=== PATIENT | male | born 1985 | race Caucasian/White ===

== ENCOUNTER 2017-02-14 20:28 | Emergency (ER) | payer MEDICAID ==
[~2017-02-14] VITALS: Ht 188 cm; Wt 61.2 kg
[~2017-02-14 20:28] MED LIST: ACETAMINOPHEN-1 EAC1; ACETAMINOPHEN-1 EAC1 PO; ACYCLOVIR 400400 MG PO; BACTRIM DS TAB1 EACH PO; CARAFATE 11 GM/10 M1 PO; CIPRO500 MG PO; CONDYLOX3.5 GM TP; CORTISPORIN OIN15 GM TOP; DIABETA 5MG TABL5 MG PO; DIFLUCAN100 MG PO; DILAUDID 2 MG TA2 MG PO; DILAUDID 4 MG TA4 M1 PO; DILAUDID 4 MG TA4 MG PO; DOXYCYCLINE 10100 MG PO; FENTANYL 1100 MCG/HR; FENTANYL 1100 MCG/HR TOP; FENTANYL 1100 MCG/HR TRANSDERM; FENTANYL PA50 MCG/HR TRANSDERM; FENTANYL PATCH75 MCG TRANSDERM; GABAPENTIN 100100 MG PO; GLUCOPHAGE500 MG PO; GLUCOPHAGE850 MG PO; HUMALOG100 UNIT/2 SQ; HYDROCODON-ACE1 EAC7 PO; HYDROCODONE-APA1 TA1 PO; IBUPROFEN 600600 M1 PO; IBUPROFEN 800800 M1 PO; KEFLEX500 MG PO; LANTUS100 UNIT/M SUBQ; LEVEMIR; LEVEMIR SUBQ; LEVEMIR100 UNIT/1 SUBQ; METFORMIN HCL500 MG PO; MOBIC7.5 MG PO; MORPHINE SULFAT20 M1 PO; NAPROSYN500 MG; NAPROSYN500 MG PO; NEURONTIN 300300 M1 PO; NEURONTIN600 MG PO; NORCO 5-325 TA1 EACH PO; NORTRIPTYLINE H10 M1 PO; NORTRIPTYLINE H25 M3 PO; NORTRIPTYLINE H50 M3; NORTRIPTYLINE H50 M3 PO; NOVOLOG100 UNIT/1; NOVOLOG100 UNIT/1 SUBQ; NOVOLOG100 UNIT/M SUBQ; OTHER MISCELL; OXYCONTIN10 M1; OXYMORPHONE HCL5 MG; PANTOPRAZOLE SO40 M1 PO; PEPCID20 MG PO; PERCOCET 10-321 EACH PO; REMERON SOLTAB45 M1 PO; ROBAXIN 750 MG750 M1 PO; SEROQUEL 50 MG50 MG PO; SLEEPING PILL; TRAZODONE HCL100 MG PO; ULTRAM 50MG TAB50 MG PO; ZOFRAN ODT4 MG PO; [UNRECOGNIZED DRUG - REMARK]
[2017-02-14 20:32] VITALS: BP 145/98
[2017-02-14] MEDS ORDERED: LEVEMIR SUBQ (20:40)
[2017-02-14] MEDS ORDERED: PENICILLIN VK500 MG PO (20:52)
[2017-02-14] MEDS ORDERED: LEVEMIR FL100 UNIT/2 SUBQ (20:52)
[2017-02-14] MEDS ORDERED: NOVOLOG100 UNIT/M SUBQ (20:52)
== END 2017-02-14 20:55 | disposition home or self-care (01) ==
LOC: M.ERS 20:28
DX: K02.9 Dental caries, unspecified (principal); K08.89 Other specified disorders of teeth and supporting structures; F17.210 Nicotine dependence, cigarettes, uncomplicated; F41.9 Anxiety disorder, unspecified; F32.9 Major depressive disorder, single episode, unspecified; E10.9 Type 1 diabetes mellitus without complications; Z88.8 Allergy status to other drugs, medicaments and biological substances; Z91.030 Bee allergy status; Z79.4 Long term (current) use of insulin

== ENCOUNTER 2017-05-08 15:16 | Emergency (ER) | payer MEDICAID ==
[~2017-05-08] VITALS: Ht 188 cm; Wt 65.8 kg
[~2017-05-08 15:16] MED LIST changes: +LEVEMIR FL100 UNIT/2 SUBQ; +PENICILLIN VK500 MG PO
[2017-05-08 16:11] LABS: HEMATOCRIT 40.2 % (42.0-52.0); HEMOGLOBIN 13.3 gm/dL (14.0-18.0); MCH 30.8 pg (26.0-34.0); MCHC 33.2 g/dL (28.0-37.0); MCV 92.9 fL (80.0-100.0); MPV 7.3 fl. (7.2-11.1); NUCLEATED RBCS 0 /100WBC; PLATELET COUNT* 269 thou/uL (150-400); RBC 4.33 mil/uL (4.50-6.00); RDW-CV 14.2 % (10.5-14.5); WBC 15.6 thou/uL (4.0-11.0)
[2017-05-08 16:29] LABS: BE -5.7 mmol/L (-2 to +3); HCO3 17.3 mmol/L (22.0-26.0); PO2 78.1 mmHg (75.0-100.0)
[2017-05-08 16:32] LABS: ALBUMIN 2.4 g/dL (3.4-5.0); ALKALINE PHOSPHATASE 180 U/L (46-116); ANION GAP 17 mmol/L (7-16); BUN 14 mg/dL (7-18); CALCIUM 9.1 mg/dL (8.5-10.1); CHLORIDE 91 mmol/L (98-107); CO2 22 mmol/L (21-32); CREATININE 1.4 mg/dL (0.6-1.3); GLUCOSE 427 mg/dL (70-99); LIPASE 43 U/L (73-393); MAGNESIUM 1.7 mg/dL (1.8-2.4); NT-PRO BRAIN NAT PEPTIDE 89 pg/mL (<300); POTASSIUM 4.2 mmol/L (3.5-5.1); SGOT 103 U/L (15-37); SGPT 99 U/L (30-65); SODIUM 130 mmol/L (136-145); TOTAL BILIRUBIN 0.5 mg/dL (<0.1-1.0); TOTAL PROTEIN 6.8 g/dL (6.4-8.2); TROPONIN-I LEVEL <0.06 ng/mL (<0.06)
[2017-05-08 17:11] LABS: ABSOLUTE LYMPHOCYTES 1.7 thou/uL (0.8-5.3); ABSOLUTE MONOCYTES 0.6 thou/uL (0.0-1.2); ABSOLUTE NEUTROPHILS 13.3 thou/uL (1.6-8.1); PLATELET ESTIMATE ADEQUATE
[2017-05-08 17:12] LABS: POLYCHROMASIA Occasional
[2017-05-08 17:28] LABS: URINE BLOOD NEGATIVE (Negative); URINE CLARITY CLEAR; URINE COLOR YELLOW; URINE GLUCOSE-RANDOM 3+ (Negative); URINE KETONES NEGATIVE (Negative); URINE LEUKOCYTES-REFLEX NEGATIVE (Negative); URINE NITRITE-REFLEX NEGATIVE (Negative); URINE PROTEIN TRACE (Negative); URINE SPECIFIC GRAVITY 1.025 (1.005-1.030); URINE UROBILINOGEN 0.2 E.U./dl (0.2-1.0)
[2017-05-08 17:31] LABS: ICTOTEST (BILI CONFIRMATORY) Negative (Negative); URINE BILIRUBIN 1+ (Negative)
[2017-05-08 18:36] LABS: ANION GAP 9 mmol/L (7-16); BUN 12 mg/dL (7-18); CALCIUM 8.7 mg/dL (8.5-10.1); CHLORIDE 96 mmol/L (98-107); CO2 27 mmol/L (21-32); CREATININE 0.9 mg/dL (0.6-1.3); GLUCOSE 139 mg/dL (70-99); POTASSIUM 3.9 mmol/L (3.5-5.1); SODIUM 132 mmol/L (136-145)
[2017-05-08 18:42] LABS: BE 1.2 mmol/L (-2 to +3); HCO3 24.9 mmol/L (22.0-26.0); PCO2 36.7 mmHg (35.0-45.0); PO2 67.9 mmHg (75.0-100.0)
[2017-05-08 18:44] LABS: TROPONIN-I LEVEL <0.06 ng/mL (<0.06)
[2017-05-08] MEDS ORDERED: AUGMENTIN 875-1 EACH PO (18:51)
[2017-05-08 19:07] VITALS: BP 112/86
--- NOTE | 2017-05-09 14:46 | EKG ---
[place] [address] ELECTROCARDIOGRAM REPORT Name: RONAK JOE Room: [facility]#: [id number] Admission: 05/08/17 Attend Phys: Discharge: 05/08/17 Date of : [birth year] Report #: [id number] THIS REPORT FOR: //name// 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: : 1985 Requested By: Jones Urena Order Number: [id number] MD: Bryan Man Measurements Intervals [place] Rate: 113 P: 66 IL: 165 QRS: 83 QRSD: 87 T: 55 QT: 317 QTc: 435 Interpretive Statements Sinus tachycardia LAE, consider biatrial enlargement Borderline Q waves in inferior leads ST elev, probable normal early repol pattern Compared to ECG 11/20/2016 17:15:03 Ectopic atrial rhythm no longer present ST (T wave) deviation still present Electronically Signed On 05-09-2017 14:46:40 CDT by Bryan Man [email or web address] <ELECTRONICALLY SIGNED> By: Bryan Man MD, FAC 05/09/17 1446 1522 1522 Bryan Man MD, [facility] /EPI
== END 2017-05-08 19:08 | disposition home or self-care (01) ==
LOC: M.ERS 15:16
PROVIDERS: Emergency Medicine Emergency Medical Services
DX: H66.91 Otitis media, unspecified, right ear (principal); J32.1 Chronic frontal sinusitis; E10.9 Type 1 diabetes mellitus without complications; Z87.442 Personal history of urinary calculi; F32.9 Major depressive disorder, single episode, unspecified; F41.9 Anxiety disorder, unspecified; Z88.8 Allergy status to other drugs, medicaments and biological substances; F17.210 Nicotine dependence, cigarettes, uncomplicated

== ENCOUNTER 2017-07-16 16:30 | Emergency (ER) | payer MEDICAID ==
[~2017-07-16] VITALS: Ht 188 cm; Wt 68.0 kg
[~2017-07-16 16:30] MED LIST changes: +AUGMENTIN 875-1 EACH PO
[2017-07-16 16:53] VITALS: BP 128/86
[2017-07-16] MEDS ORDERED: FREESTYLE INSU1 EAC2 MISCELL (17:05)
[2017-07-16] MEDS ORDERED: BD ULTRA-FINE1 EAC4 MISCELL (17:05)
[2017-07-16] MEDS ORDERED: NOVOLOG100 UNIT/M SUBQ (17:05)
[2017-07-16] MEDS ORDERED: LEVEMIR FL100 UNIT/2 SUBQ (17:05)
== END 2017-07-16 17:18 | disposition home or self-care (01) ==
LOC: M.ERS 16:30
DX: E10.8 Type 1 diabetes mellitus with unspecified complications (principal); Z76.0 Encounter for issue of repeat prescription; F41.9 Anxiety disorder, unspecified; F32.9 Major depressive disorder, single episode, unspecified; F17.210 Nicotine dependence, cigarettes, uncomplicated; Z88.8 Allergy status to other drugs, medicaments and biological substances; Z87.442 Personal history of urinary calculi

== ENCOUNTER 2017-11-13 19:53 | Emergency (ER) | payer MEDICAID ==
[~2017-11-13] VITALS: Ht 188 cm; Wt 63.5 kg
[~2017-11-13 19:53] MED LIST changes: +BD ULTRA-FINE1 EAC4 MISCELL; +FREESTYLE INSU1 EAC2 MISCELL
[2017-11-13] MEDS ORDERED: NORCO 5-325 TA1 EACH PO (20:40)
[2017-11-13 20:57] VITALS: BP 120/72
== END 2017-11-13 20:58 | disposition home or self-care (01) ==
LOC: M.ERS 19:53
DX: M25.562 Pain in left knee (principal); F41.9 Anxiety disorder, unspecified; F32.9 Major depressive disorder, single episode, unspecified; E10.8 Type 1 diabetes mellitus with unspecified complications; F17.210 Nicotine dependence, cigarettes, uncomplicated; Z88.8 Allergy status to other drugs, medicaments and biological substances; Z87.442 Personal history of urinary calculi

== ENCOUNTER 2018-02-04 13:37 | Emergency (ER) | payer MEDICAID ==
[~2018-02-04] VITALS: Ht 188 cm; Wt 61.2 kg
[2018-02-04] MEDS ORDERED: LEVEMIR SUBQ (14:01)
[2018-02-04] MEDS ORDERED: NOVOLOG FL100 UNIT/M SUBQ (14:40)
[2018-02-04] MEDS ORDERED: NABUMETONE 750750 M1 PO (15:03)
[2018-02-04 15:27] VITALS: BP 135/96
== END 2018-02-04 15:28 | disposition home or self-care (01) ==
LOC: M.ERS 13:37
DX: S90.121A Contusion of right lesser toe(s) without damage to nail, initial encounter (principal); E10.9 Type 1 diabetes mellitus without complications; F32.9 Major depressive disorder, single episode, unspecified; F41.9 Anxiety disorder, unspecified; F17.210 Nicotine dependence, cigarettes, uncomplicated; Z87.442 Personal history of urinary calculi; Z86.14 Personal history of Methicillin resistant Staphylococcus aureus infection; Z88.8 Allergy status to other drugs, medicaments and biological substances; Z91.030 Bee allergy status; W22.8XXA Striking against or struck by other objects, initial encounter; Y93.89 Activity, other specified; Y92.89 Other specified places as the place of occurrence of the external cause; Y99.8 Other external cause status

== ENCOUNTER 2018-11-23 19:47 | Emergency (ER) | payer OTHER ==
[~2018-11-23] VITALS: Ht 188 cm; Wt 63.5 kg
[~2018-11-23 19:47] MED LIST changes: +MEDROLDOSEPACK PO; +NABUMETONE 750750 M1 PO; +NOVOLOG FL100 UNIT/M SUBQ; +TRAMADOL 50 MG50 MG PO
[2018-11-23] MEDS ORDERED: KEFLEX500 M1 PO (21:06)
[2018-11-23 21:33] VITALS: BP 124/85
== END 2018-11-23 21:35 | disposition home or self-care (01) ==
LOC: M.ERS 19:47
DX: S81.812A Laceration without foreign body, left lower leg, initial encounter (principal); E10.9 Type 1 diabetes mellitus without complications; F41.9 Anxiety disorder, unspecified; F32.9 Major depressive disorder, single episode, unspecified; F17.210 Nicotine dependence, cigarettes, uncomplicated; Z88.8 Allergy status to other drugs, medicaments and biological substances; Z86.14 Personal history of Methicillin resistant Staphylococcus aureus infection; Z87.442 Personal history of urinary calculi; W25.XXXA Contact with sharp glass, initial encounter; Y93.89 Activity, other specified; Y92.89 Other specified places as the place of occurrence of the external cause; Y99.8 Other external cause status

== ENCOUNTER 2019-08-05 20:25 | Inpatient (IN) | payer MEDICAID ==
[~2019-08-05] VITALS: Ht 188 cm; Wt 63.5 kg
[~2019-08-05 20:25] MED LIST changes: +KEFLEX500 M1 PO
[2019-08-05 21:49] LABS: ABSOLUTE BASOPHILS 0.1 thou/uL (0.0-0.2); ABSOLUTE LYMPHOCYTES 2.1 thou/uL (0.8-5.3); ABSOLUTE MONOCYTES 0.3 thou/uL (0.0-1.2); ABSOLUTE NEUTROPHILS 3.8 thou/uL (1.6-8.1); BASOPHILS 1.2 %; EOSINOPHILS 0.8 %; HEMATOCRIT 40.9 % (42.0-52.0); HEMOGLOBIN 14.4 gm/dL (14.0-18.0); LYMPHOCYTES 33.7 %; MCH 32.7 pg (26.0-34.0); MCHC 35.3 g/dL (28.0-37.0); MCV 92.7 fL (80.0-100.0); MONOCYTES 4.6 %; MPV 6.9 fl. (7.2-11.1); NUCLEATED RBCS 0 /100WBC; PLATELET COUNT* 336 thou/uL (150-400); POLYS 59.7 %; RBC 4.41 mil/uL (4.50-6.00); RDW-CV 13.8 % (10.5-14.5); WBC 6.3 thou/uL (4.0-11.0)
[2019-08-05 21:57] LABS: CALCIUM 8.8 mg/dL (8.5-10.1); CREATININE 1.5 mg/dL (0.6-1.3); POTASSIUM 3.8 mmol/L (3.5-5.1)
[2019-08-05 22:00] LABS: BE -3.4 mmol/L (-2 to +3); PCO2 34.3 mmHg (35.0-45.0); PO2 97.2 mmHg (75.0-100.0); pH 7.396 (7.340-7.450)
[2019-08-05 22:03] LABS: MAGNESIUM 1.8 mg/dL (1.8-2.4); TOTAL BILIRUBIN 0.3 mg/dL (<0.1-1.0); TOTAL PROTEIN 6.3 g/dL (6.4-8.2)
--- NOTE | 2019-08-05 23:00 | NUR ---
TURKEY SANDWICH/LEMON SODA GIVEN TO PATIENT
[2019-08-05 23:30] LABS: URINE BILIRUBIN NEGATIVE (Negative); URINE BLOOD NEGATIVE (Negative); URINE CLARITY CLEAR; URINE COLOR YELLOW; URINE GLUCOSE-RANDOM 3+ (Negative); URINE KETONES NEGATIVE (Negative); URINE LEUKOCYTES-REFLEX NEGATIVE (Negative); URINE NITRITE-REFLEX NEGATIVE (Negative); URINE PROTEIN NEGATIVE (Negative); URINE UROBILINOGEN 0.2 E.U./dl (0.2-1.0)
--- NOTE | 2019-08-05 23:59 | NUR ---
ALL BELONGINGS SENT WITH PARENTS
[2019-08-06 02:00] LABS: AMP/METHAMP Negative (Negative); BARBITURATES Negative (Negative); BENZODIAZEPINES Negative (Negative); COCAINE Negative (Negative); METHADONE Negative (Negative); OPIATES Negative (Negative); PCP Negative (Negative); THC POSITIVE (Negative)
[2019-08-06 04:30] VITALS: BP 98/66
[2019-08-06 08:38] VITALS: BP 101/61
[2019-08-06 08:43] LABS: CALCIUM 7.9 mg/dL (8.5-10.1); CREATININE 0.8 mg/dL (0.6-1.3); MAGNESIUM 1.8 mg/dL (1.8-2.4)
[2019-08-06 08:45] LABS: POTASSIUM 5.2 mmol/L (3.5-5.1)
--- NOTE | 2019-08-06 09:14 | NUR ---
NOTIFIED OF PT'S BLOOD SUGAR PER SLIDING SCALE INSTRUCTIONS
[2019-08-06 09:19] VITALS: BP 101/61
--- NOTE | 2019-08-06 12:08 | EKG ---
[place] [address] ELECTROCARDIOGRAM REPORT Name: RONAK JOE Room: [place] [address] DIS IN M.R.#: [id number] Admission: 08/06/19 Attend Phys: Yasmany vinson Sa Discharge: 08/06/19 Date of : 89 Date of Service: 08/05/192032 Report #: [id number] THIS REPORT FOR: //name// [facility] ED Test Date: 2019-08-05 Test Time: 20:33:52 Pat Name: RONAK JOE Department: Room: [place] [address] Gender: M Rn Icu: freddy : 1985 Requested By: Judie Mallory Order Number: [id number] MD: Bryan Man Measurements Intervals [place] Rate: 103 P: 75 VA: 183 QRS: 92 QRSD: 90 T: 65 QT: 339 QTc: 444 Interpretive Statements Sinus tachycardia Probable left atrial enlargement Borderline right axis deviation ST elevation suggests repolarization Baseline wander in lead(s) II,III,aVR,aVF Compared to ECG 08/08/2018 11:04:40 Myocardial infarct finding no longer present Electronically Signed On 08-06-2019 12:07:31 CDT by Bryan Man [email or web address] <ELECTRONICALLY SIGNED> By: Bryan Man MD, [facility] 08/06/19 1207 32 32 Bryan Man MD, [facility] /EPI
[2019-08-07 02:06] LABS: GLYCOHEMOGLOBIN (HGB A1C) 11.9 % (4.8-5.6)
== END 2019-08-06 09:21 | disposition left against medical advice (07) | DRG 922 ==
LOC: M.ERS 20:25 → M.TBA-ER 08-06 00:48
PROVIDERS: Internal Medicine; Personal Emergency Response Attendant; ADMIT Family Medicine; ATTEND Family Medicine
DX: T67.01XA Heatstroke and sunstroke, initial encounter (principal); N17.0 Acute kidney failure with tubular necrosis; E10.65 Type 1 diabetes mellitus with hyperglycemia; F32.9 Major depressive disorder, single episode, unspecified; F17.210 Nicotine dependence, cigarettes, uncomplicated; Y99.8 Other external cause status; Z53.29 Procedure and treatment not carried out because of patient's decision for other reasons; F41.1 Generalized anxiety disorder; Z20.828 Contact with and (suspected) exposure to other viral communicable diseases; X58.XXXA Exposure to other specified factors, initial encounter; Z87.442 Personal history of urinary calculi; Z87.81 Personal history of (healed) traumatic fracture; Z86.14 Personal history of Methicillin resistant Staphylococcus aureus infection; Z88.8 Allergy status to other drugs, medicaments and biological substances; Y93.89 Activity, other specified; Y92.89 Other specified places as the place of occurrence of the external cause

== ENCOUNTER 2019-09-13 02:58 | Inpatient (IN) | payer MEDICAID ==
[2019-09-13] VITALS (18 sets, daily range): BP systolic 117–144; BP diastolic 82–95
[~2019-09-13] VITALS: Ht 188 cm; Wt 61.7 kg
[2019-09-13 03:29] LABS: PCO2 31.4 mmHg (35.0-45.0); PO2 90.7 mmHg (75.0-100.0); pH 7.412 (7.340-7.450)
[2019-09-13 03:37] LABS: HEMATOCRIT 39.9 % (42.0-52.0); HEMOGLOBIN 13.4 gm/dL (14.0-18.0); MCH 33.1 pg (26.0-34.0); MCHC 33.5 g/dL (28.0-37.0); MCV 98.7 fL (80.0-100.0); MPV 6.9 fl. (7.2-11.1); NUCLEATED RBCS 0 /100WBC; PLATELET COUNT* 324 thou/uL (150-400); RBC 4.04 mil/uL (4.50-6.00); RDW-CV 13.4 % (10.5-14.5); WBC 8.7 thou/uL (4.0-11.0)
[2019-09-13 03:50] LABS: ANION GAP 14 mmol/L (7-16); BUN 18 mg/dL (7-18); CHLORIDE 83 mmol/L (98-107); CO2 24 mmol/L (21-32); CREATININE 1.5 mg/dL (0.6-1.3); POTASSIUM 4.1 mmol/L (3.5-5.1); SODIUM 121 mmol/L (136-145)
[2019-09-13 03:51] LABS: ALBUMIN 2.3 g/dL (3.4-5.0); ALKALINE PHOSPHATASE 221 U/L (46-116); LIPASE 57 U/L (73-393); MAGNESIUM 1.8 mg/dL (1.8-2.4); SGOT 322 U/L (15-37); SGPT 177 U/L (30-65); TOTAL BILIRUBIN 0.7 mg/dL (<0.1-1.0); TOTAL PROTEIN 7.6 g/dL (6.4-8.2)
[2019-09-13 03:52] LABS: GLUCOSE 729 mg/dL (70-99)
[2019-09-13 03:53] LABS: AMMONIA < 10 umol/L (11-32)
[2019-09-13 04:05] LABS: URINE BILIRUBIN NEGATIVE (Negative); URINE BLOOD NEGATIVE (Negative); URINE CLARITY CLEAR; URINE COLOR YELLOW; URINE GLUCOSE-RANDOM 3+ (Negative); URINE KETONES 1+ (Negative); URINE LEUKOCYTES-REFLEX NEGATIVE (Negative); URINE NITRITE-REFLEX NEGATIVE (Negative); URINE PROTEIN NEGATIVE (Negative); URINE SPECIFIC GRAVITY <= 1.005 (1.005-1.030); URINE UROBILINOGEN 0.2 E.U./dl (0.2-1.0)
[2019-09-13 04:11] LABS: ABSOLUTE LYMPHOCYTES 0.6 thou/uL (0.8-5.3); ABSOLUTE MONOCYTES 0.2 thou/uL (0.0-1.2); ABSOLUTE NEUTROPHILS 7.9 thou/uL (1.6-8.1); PLATELET ESTIMATE ADEQUATE
[2019-09-13 04:13] LABS: AMP/METHAMP Negative (Negative); BARBITURATES Negative (Negative); BENZODIAZEPINES Negative (Negative); COCAINE Negative (Negative); METHADONE Negative (Negative); OPIATES Negative (Negative); PCP Negative (Negative); THC Negative (Negative)
--- NOTE | 2019-09-13 07:37 | NUR ---
ASSUME CARE OF PT. REVIEWEDD MEDS AND INSULIN. PT STATES HE HAS NOT BEEN TAKING HIS INSULIN AT HOME "BECAUSE I DON'T FEEL GOOD".PT REPORTS HE DOES NOT HAVE A PCP. OFFERED NUMBERS FOR PCP IN THE AREA. DISCUSSED COMPLIANCE. WILL GIVE PT INFO. NSR ON MONITOR. PT REPORTS CHEST WALL PAIN. REQUESTING PAIN MEDS. OFFERED PT NICOTINE PATCH. PT REFUSES " I AM JUST GOING TO LEAVE WHEN I WAKE UP"
[2019-09-13] MEDS ORDERED: CEFDINIR300 MG PO (07:51)
[2019-09-13] MEDS ORDERED: AZITHROMYCIN500 MG PO (07:51)
[2019-09-13] MEDS ORDERED: NOVOLOG100 UNIT/M SUBQ (07:51)
--- NOTE | 2019-09-13 09:29 | EKG ---
[place] [address] ELECTROCARDIOGRAM REPORT Name: RONAK JOE Room: [address] ADM IN M.R.#: [id number] Admission: 09/13/19 Attend Phys: Roberto Meyers Discharge: Date of : 89 Date of Service: 09/13/19 0309 Report #: [id number] THIS REPORT FOR: //name// [facility] ED Test Date: 2019-09-13 Test Time: 03:09:10 Pat Name: RONAK JOE Department: Room: [facility] Gender: M [employer]: YARED : 1985 Requested By: Dalia Macdonald Order Number: [id number] MD: Bryan Man Measurements Intervals [place] Rate: 105 P: 53 ME: 169 QRS: 76 QRSD: 96 T: 51 QT: 313 QTc: 414 Interpretive Statements Sinus tachycardia ST elev, probable normal early repol pattern Baseline wander in lead(s) II,III,aVF Compared to ECG 08/05/2019 20:33:52 No significant changes Electronically Signed On 09-13-2019 9:29:07 CDT by Bryan Man [email or web address] <ELECTRONICALLY SIGNED> By: Bryan Man MD, FAC 09/13/19 0929 0309 0309 Bryan Man MD, FAC /EPI
[2019-09-13 10:09] LABS: CALCIUM 8.3 mg/dL (8.5-10.1); CREATININE 0.9 mg/dL (0.6-1.3); POTASSIUM 3.3 mmol/L (3.5-5.1)
[2019-09-13 10:12] LABS: ALBUMIN 1.9 g/dL (3.4-5.0); MAGNESIUM 1.6 mg/dL (1.8-2.4); PHOSPHORUS* 2.3 mg/dL (2.5-4.9)
--- NOTE | 2019-09-13 11:35 | NUR ---
RX CALLED IN TO [facility] FOR GLUCOMETER,STRIPS,LANCETS AND EMERGENCY GLUCAGON PER DR THIBODEAUX. REFERRAL SENT TO [facility] FOR APPT TO ESTABLISH CARE FOR DIABETES
--- NOTE | 2019-09-13 14:10 | NUR ---
ICU rounds: DKA, noncompliant type 1 diabetic. Nurse called scripts into Pt's pharmacy, Pt threatening to leave AMA. Pt resides at home with his GF. Independent. No DME. No hx of HH or SNF. No needs.
--- NOTE | 2019-09-13 15:30 | NUR ---
NUTRITION: CONSULTED BY NSG. PT DELCINED DIET EDUCATION STATING THAT HE WAS PLANNING ON GOING TO DIABETIC CLASSES AFTER DISCHARGE. ASKED PT AGAIN IF HE WOULD LIKE SOME INFORMATION TO GO OVER NOW AND TAKE HOME. PT DECLINED AGAIN STATING THE HE WANTS TIME TO "SIT DOWN AND STUDY IT, AND IF YOU GIVE IT TO ME HERE I WILL JUST THROW IT IN THE TRASH." PT IS UNDERWEIGHT PER BMI, WT IS CLOSE TO UBW RANGE 135-140 LB. ALBUMIN 2.3, CR 1.5, NA 121. BG IMPROVED, OFF DKA PROTOCOL. PT REPORTED HE WAS NOT TAKING INSULIN NUTRITIONIST. BG NOW IMPROVED, TAKEN OFF DKA PROTOCOL. PHYSICIAN NOTED MODERATE PCM, DEFER. ASSESS PT AT MILD NUTRITION RISK, DECLINED GLUCERNA SUPPLEMENTS.
[2019-09-13 16:29] LABS: CALCIUM 8.1 mg/dL (8.5-10.1); CREATININE 0.7 mg/dL (0.6-1.3)
[2019-09-13 16:30] LABS: POTASSIUM 5.1 mmol/L (3.5-5.1)
[2019-09-13 16:32] LABS: ALBUMIN 1.9 g/dL (3.4-5.0); MAGNESIUM 1.7 mg/dL (1.8-2.4); PHOSPHORUS* 2.2 mg/dL (2.5-4.9)
--- NOTE | 2019-09-13 16:55 | NUR ---
PT RESTING IN BED THROUGHOUT SHIFT.INSULIN GTT TURNED OFF THIS AFTERNOON. BG REMAIN IN 100S. IVF INFUSING. VOIDING PER URINAL. PT REPORTS RIGHT CHEST WALL AND RIB PAIN,CONTROLLED BY MEDS.TOLERATING PO WELL. DISCUSSED NONCOMPLIANCE AND EDUCATED PT ON DIABETES MANAGEMENT. DISCUSSED CARE PLAN WITH PT SIGNIFICANT OTHER. NSR. VSS.
[2019-09-14] VITALS (8 sets, daily range): BP systolic 118–138; BP diastolic 77–98
[2019-09-14 04:02] LABS: ALBUMIN 1.7 g/dL (3.4-5.0); CALCIUM 8.1 mg/dL (8.5-10.1); CREATININE 0.8 mg/dL (0.6-1.3); MAGNESIUM 1.9 mg/dL (1.8-2.4); PHOSPHORUS* 1.9 mg/dL (2.5-4.9); POTASSIUM 4.2 mmol/L (3.5-5.1); TOTAL BILIRUBIN 0.4 mg/dL (<0.1-1.0); TOTAL PROTEIN 6.2 g/dL (6.4-8.2)
--- NOTE | 2019-09-14 06:48 | NUR ---
VSS. IVF INFUSING ORDERED. HS BG 268, LANTUS AND SSI GIVEN ORDERED. REMAINS A/O X4, CALM AND COOPERATIVE THROUGHOUT THE NIGHT. RIGHT CHEST WALL/RIB FRACTURE PAIN TREATED WITH PRN FENTANYL WITH ADEQUATE RELIEF PER PT REPORT. TOLERATING PO DIET WITH NO C/O NAUSEA. PT STANDS TO VOID PER URINAL INDEPENDENTLY, STEADY GAIT. CALL LIGHT WITHIN REACH.
--- NOTE | 2019-09-14 18:44 | NUR ---
ASSESSMENT CHARTED. VSS THROUGHOUT SHIFT. PAIN IN RIGHT CHEST WHERE RIB FX ARE CONTROLLED WITH PRN PAIN MEDICATION. UP IN ROOM. LEFT HIP/KNEE IS SWOLLEN. FAMILY IS WONDERING IF THIS CAN BE ADDRESSED WHILE HE IS IN THE HOSPITAL. PATIENT REPORTS THAT THE SCAB ON HIS LEFT KNEE HAS BEEN THERE FOR SOME TIME NOW. NO OTHER COMPLAINTS DURING THIS SHIFT.
--- NOTE | 2019-09-14 19:20 | NUR ---
VSS. PT TRANSFERRED TO ROOM 109 VIA W/C, REPORT GIVEN TO GILBERTO RENO. ALL PERSONAL BELONGINGS SENT WITH PT.
--- NOTE | 2019-09-14 19:31 | NUR ---
PATIENT TO ROOM 109 VIA WHEELCHAIR AT 1920
--- NOTE | 2019-09-15 05:12 | NUR ---
PATIENT REPORTED PAIN 4/10 RECEIVED FENTANYL/CELEBREX. WAS ABLE TO SLEEP THROUGH THE NIGHT. HE DID NOT REPORT ANY NAUSEA. RECEIVED INSULIN, MEDS SCHEDULED. WILL CONTINUE TO MONITOR.
[2019-09-15 07:40] VITALS: BP 126/80
[2019-09-15 14:40] LABS: HEMATOCRIT 38.6 % (42.0-52.0); HEMOGLOBIN 13.2 gm/dL (14.0-18.0)
[2019-09-15 15:35] VITALS: BP 124/96
--- NOTE | 2019-09-15 16:28 | NUR ---
PATIENT NPO THIS AM FOR CT CHEST, DR. THIBODEAUX NOTIFIED THAT CT AND CXR RESULTED, NO NEW ORDERS RECEIVED. PATIENT C/O RIGHT SIDE RIB SWELLING, DR. THIBODEAUX NOTIFIED AND NO NEW ORDERS RECEIVED. SKIN CHECKED WITH HEATING PAD PLACEMENT. IV SL, PRN FENTANYL GIVEN X [address] SHIFT FOR PAIN. DR. THIBODEAUX NOTIFIED OF GLUCOSES THROUGH THE SHIFT, INSULIN GIVEN ORDERED. SCHED INSULIN WITH MEALS WAS DECREASED PER DR. THIBODEAUX. PATIENT UP AD JANIS.
[2019-09-15 21:20] VITALS: BP 136/82
[2019-09-16 04:05] LABS: HEMATOCRIT 35.5 % (42.0-52.0); HEMOGLOBIN 12.2 gm/dL (14.0-18.0); MCH 32.1 pg (26.0-34.0); MCHC 34.4 g/dL (28.0-37.0); MPV 6.7 fl. (7.2-11.1); RBC 3.8 mil/uL (4.50-6.00); WBC 11.9 thou/uL (4.0-11.0)
[2019-09-16 04:48] LABS: MCV 93.4 fL (80.0-100.0)
--- NOTE | 2019-09-16 05:09 | NUR ---
SOME SWELLING RIGHT SIDE OF TORSO. ENCOURAGED FREQUENT REPOSITIONING AND TO SIT IN THE RECLINER WHEN HE COULD. HE DID WELL WITH 50 MCG OF FENTANYL AND CELEBREX. PAIN IS NOW 4/10 THIS AM. HE IS ABLE TO AMBULATE TO RESTROOM. ON ROOM AIR. NO CRITICAL LABS THIS AM. LOW PLATELETS AT 474. USING KPAD FOR COMFORT. THERE IS SOME EDEMA ON LEFT KNEE AND LEFT ANKLE. HE SAID HE DID FALL WHEN HE WAS IN HIS HYPERGLYCEMIC EPISODE AT HOME BEFORE COMING TO ER. WILL CONTINUE TO FOLLOW PLAN OF CARE.
[2019-09-16] MEDS ORDERED: HYDROCODON-ACE1 EAC7 PO (07:50)
[2019-09-16 08:00] VITALS: BP 133/91
[2019-09-16 10:18] VITALS: BP 132/93
[2019-09-16 10:23] VITALS: BP 132/93
--- NOTE | 2019-09-16 11:08 | NUR ---
PT DISCHARGED TO HOME BY WHEELCHAIR WITH SO AND NURSING STAFF. IV OUT. PAIN CONTROLLED PRESCRIPTIONS EFAXED TO PHARMACY BY PERSONAL ITEMS SENT WITH PT.
== END 2019-09-16 11:10 | disposition home or self-care (01) | DRG 871 ==
LOC: M.ERS 02:58 → M.ICU 05:23 → M.TBA-ER 05:23 → M.ICU 05:40 → M.ORTHSURG 09-14 19:29
PROVIDERS: Emergency Medicine; Internal Medicine; ADMIT Internal Medicine; ATTEND Internal Medicine
DX: A41.9 Sepsis, unspecified organism (principal); E10.10 Type 1 diabetes mellitus with ketoacidosis without coma; J18.9 Pneumonia, unspecified organism; N17.0 Acute kidney failure with tubular necrosis; E87.1 Hypo-osmolality and hyponatremia; M84.48XA Pathological fracture, other site, initial encounter for fracture; S27.321A Contusion of lung, unilateral, initial encounter; E44.0 Moderate protein-calorie malnutrition; Z68.1 Body mass index [BMI] 19.9 or less, adult; F32.9 Major depressive disorder, single episode, unspecified; E10.65 Type 1 diabetes mellitus with hyperglycemia; Z20.828 Contact with and (suspected) exposure to other viral communicable diseases; F17.210 Nicotine dependence, cigarettes, uncomplicated; F41.1 Generalized anxiety disorder; Z87.81 Personal history of (healed) traumatic fracture; Z87.442 Personal history of urinary calculi; Z91.19 Patient's noncompliance with other medical treatment and regimen; Z86.14 Personal history of Methicillin resistant Staphylococcus aureus infection; Z88.8 Allergy status to other drugs, medicaments and biological substances; X58.XXXA Exposure to other specified factors, initial encounter; Y93.89 Activity, other specified; Y92.89 Other specified places as the place of occurrence of the external cause; Y99.8 Other external cause status

== ENCOUNTER 2020-05-14 16:24 | Inpatient (IN) | payer MEDICAID ==
[~2020-05-14] VITALS: Ht 172.7 cm; Wt 60.3 kg
[2020-05-14] VITALS (9 sets, daily range): BP systolic 106–138; BP diastolic 68–94
[~2020-05-14 16:24] MED LIST changes: +AZITHROMYCIN500 MG PO; +CEFDINIR300 MG PO
[2020-05-14] MEDS ORDERED: METFORMIN HCL500 M3 PO (16:31)
[2020-05-14 16:52] LABS: URINE BILIRUBIN NEGATIVE (Negative); URINE BLOOD 1+ (Negative); URINE CLARITY CLEAR; URINE COLOR YELLOW; URINE GLUCOSE-RANDOM 3+ (Negative); URINE LEUKOCYTES-REFLEX NEGATIVE (Negative); URINE NITRITE-REFLEX NEGATIVE (Negative); URINE PROTEIN NEGATIVE (Negative); URINE SPECIFIC GRAVITY 1.025 (1.005-1.030); URINE UROBILINOGEN 0.2 E.U./dl (0.2-1.0)
[2020-05-14 16:54] LABS: URINE KETONES 3+ (Negative)
[2020-05-14 17:02] LABS: AMP/METHAMP POSITIVE (Negative); BARBITURATES Negative (Negative); BENZODIAZEPINES POSITIVE (Negative); COCAINE Negative (Negative); METHADONE Negative (Negative); OPIATES POSITIVE (Negative); PCP Negative (Negative); THC Negative (Negative)
[2020-05-14 17:25] LABS: BACTERIA-REFLEX None Seen /HPF (None Seen); CRYSTALS None Seen /LPF (None Seen); HYALINE CASTS 0-3 Few /LPF (None Seen); SQUAMOUS 0-3 Few /LPF (0-3); URINE RBC 0-2 Rare /HPF (0-2); URINE WBC-REFLEX 0-5 Rare /HPF (0-5)
[2020-05-14 17:26] LABS: MUCUS None Seen strn/LPF (None Seen)
[2020-05-14 17:41] LABS: ABSOLUTE BASOPHILS 0.1 thou/uL (0.0-0.2); ABSOLUTE LYMPHOCYTES 1.9 thou/uL (0.8-5.3); ABSOLUTE MONOCYTES 0.3 thou/uL (0.0-1.2); ABSOLUTE NEUTROPHILS 7.7 thou/uL (1.6-8.1); BASOPHILS 0.7 %; BE -26.3 mmol/L (-2 to +3); EOSINOPHILS 0.2 %; HEMATOCRIT 49.1 % (42.0-52.0); HEMOGLOBIN 14.9 gm/dL (14.0-18.0); LYMPHOCYTES 19.4 %; MCH 31.5 pg (26.0-34.0); MCHC 30.4 g/dL (28.0-37.0); MCV 103.8 fL (80.0-100.0); MONOCYTES 2.6 %; MPV 7.1 fl. (7.2-11.1); NUCLEATED RBCS 0 /100WBC; PCO2 VENOUS 23.7 mmHg (41.0-51.0); PLATELET COUNT* 380 thou/uL (150-400); PO2 VENOUS 52.8 mmHg (35.0-45.0); POLYS 77.1 %; RBC 4.73 mil/uL (4.50-6.00); RDW-CV 15.7 % (10.5-14.5); WBC 9.9 thou/uL (4.0-11.0)
[2020-05-14 17:53] LABS: APTT 21.9 Seconds (25.0-31.3); INR 1.1; PROTIME 11.4 Seconds (9.20-11.50)
[2020-05-14 17:54] LABS: CALCIUM 9.1 mg/dL (8.5-10.1); CREATININE 1.3 mg/dL (0.6-1.3)
[2020-05-14 18:01] LABS: ALCOHOL < 10 mg/dL (<10); SALICYLATE 9.3 mg/dL (2.8-20.0)
[2020-05-14 18:04] LABS: ALBUMIN 4.2 g/dL (3.4-5.0); CK-MB MASS 6.8 ng/mL (<0.5-3.6); TOTAL BILIRUBIN 0.9 mg/dL (<0.1-1.0); TOTAL PROTEIN 8.7 g/dL (6.4-8.2)
[2020-05-14 18:05] LABS: ACETAMINOPHEN < 2 ug/mL (10-30)
[2020-05-14 21:43] LABS: ALBUMIN 1.9 g/dL (3.4-5.0); MAGNESIUM 1.4 mg/dL (1.8-2.4); PHOSPHORUS* 2.5 mg/dL (2.5-4.9)
[2020-05-14 21:45] LABS: CALCIUM 6.2 mg/dL (8.5-10.1); POTASSIUM 3.1 mmol/L (3.5-5.1)
[2020-05-14 22:38] LABS: BUN 25 mg/dL (7-18); CHLORIDE 112 mmol/L (98-107); CREATININE 1.2 mg/dL (0.6-1.3); GLUCOSE 383 mg/dL (70-99)
[2020-05-14 22:40] LABS: BE -21.8 mmol/L (-2 to +3)
[2020-05-14 22:40] LABS: ANION GAP 34 mmol/L (7-16); CALCIUM 9.2 mg/dL (8.5-10.1); POTASSIUM 4.6 mmol/L (3.5-5.1); SODIUM 152 mmol/L (136-145)
[2020-05-14 22:43] LABS: PCO2 19.3 mmHg (35.0-45.0); PO2 > 488.8 mmHg (75.0-100.0); pH 7.103 (7.340-7.450)
[2020-05-14 22:44] LABS: CO2 6 mmol/L (21-32)
[2020-05-15] VITALS (72 sets, daily range): BP systolic 81–127; BP diastolic 44–94
[2020-05-15 02:19] LABS: MAGNESIUM 2.5 mg/dL (1.8-2.4)
[2020-05-15 02:47] LABS: CALCIUM 8.1 mg/dL (8.5-10.1); CREATININE 1.3 mg/dL (0.6-1.3); POTASSIUM 3.9 mmol/L (3.5-5.1)
[2020-05-15 06:40] LABS: HEMATOCRIT 43.3 % (42.0-52.0); HEMOGLOBIN 13.9 gm/dL (14.0-18.0); MCH 30.7 pg (26.0-34.0); MCHC 32.1 g/dL (28.0-37.0); MPV 6.5 fl. (7.2-11.1); RBC 4.52 mil/uL (4.50-6.00); RDW-CV 14.3 % (10.5-14.5); WBC 16.1 thou/uL (4.0-11.0)
[2020-05-15 06:45] LABS: MCV 95.9 fL (80.0-100.0)
[2020-05-15 07:00] LABS: ALKALINE PHOSPHATASE 127 U/L (46-116); ANION GAP 21 mmol/L (7-16); BUN 25 mg/dL (7-18); CHLORIDE 119 mmol/L (98-107); CO2 14 mmol/L (21-32); CREATININE 1.7 mg/dL (0.6-1.3); GLUCOSE 169 mg/dL (70-99); MAGNESIUM 2.8 mg/dL (1.8-2.4); SGOT 60 U/L (15-37); SGPT 75 U/L (30-65); SODIUM 154 mmol/L (136-145); TOTAL BILIRUBIN 0.5 mg/dL (<0.1-1.0); TOTAL PROTEIN 6.5 g/dL (6.4-8.2)
[2020-05-15 08:30] LABS: BE -12.7 mmol/L (-2 to +3); PCO2 29.8 mmHg (35.0-45.0)
[2020-05-15 08:34] LABS: PO2 169.2 mmHg (75.0-100.0); pH 7.257 (7.340-7.450)
--- NOTE | 2020-05-15 09:51 | EKG ---
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 : 1985 Requested By: Jones Urena Order Number: [id number] MD: Bryan Man Measurements Intervals [place] Rate: 118 P: 78 MA: 162 QRS: 85 QRSD: 96 T: -57 QT: 342 QTc: 480 Interpretive Statements Sinus tachycardia Biatrial enlargement Abnormal T, consider ischemia, inferior leads Compared to ECG 09/13/2019 03:09:10 Atrial abnormality now present T-wave abnormality now present Electronically Signed On 05-15-2020 9:51:01 CDT by Bryan Man [email or web address] <ELECTRONICALLY SIGNED> By: Bryan Man MD, FAC 05/15/20 0951 1632 1632 Bryan Man MD, FAC /EPI
[2020-05-15 12:41] LABS: ANION GAP 15 mmol/L (7-16); BUN 26 mg/dL (7-18); CALCIUM 8.7 mg/dL (8.5-10.1); CHLORIDE 117 mmol/L (98-107); CO2 19 mmol/L (21-32); CREATININE 2.1 mg/dL (0.6-1.3); GLUCOSE 255 mg/dL (70-99); POTASSIUM 5.2 mmol/L (3.5-5.1); SODIUM 151 mmol/L (136-145)
[2020-05-15 14:56] LABS: ABSOLUTE MONOCYTES 0.6 thou/uL (0.0-1.2); ABSOLUTE NEUTROPHILS 8.4 thou/uL (1.6-8.1); BASOPHILS 0.3 %; EOSINOPHILS 0.2 %; HEMOGLOBIN 14.2 gm/dL (14.0-18.0); MCH 31.2 pg (26.0-34.0); MCHC 32.3 g/dL (28.0-37.0); MCV 96.8 fL (80.0-100.0); MONOCYTES 5.5 %; MPV 6.6 fl. (7.2-11.1); NUCLEATED RBCS 0 /100WBC; RBC 4.54 mil/uL (4.50-6.00); WBC 11.1 thou/uL (4.0-11.0)
[2020-05-15 15:00] LABS: CALCIUM 8.1 mg/dL (8.5-10.1); CREATININE 2.4 mg/dL (0.6-1.3)
[2020-05-15 15:03] LABS: PLATELET COUNT* 276 thou/uL (150-400)
[2020-05-15 15:04] LABS: ALBUMIN 2.7 g/dL (3.4-5.0); MAGNESIUM 2.3 mg/dL (1.8-2.4); PHOSPHORUS* 1.9 mg/dL (2.5-4.9); TOTAL BILIRUBIN 0.4 mg/dL (<0.1-1.0)
[2020-05-15 15:05] LABS: POTASSIUM 3.9 mmol/L (3.5-5.1)
[2020-05-15 16:37] LABS: INR 1.1; PROTIME 11.3 Seconds (9.20-11.50)
[2020-05-15 20:05] LABS: ALBUMIN 2.3 g/dL (3.4-5.0); CALCIUM 7.4 mg/dL (8.5-10.1); CREATININE 2.5 mg/dL (0.6-1.3); MAGNESIUM 2.3 mg/dL (1.8-2.4); POTASSIUM 4.4 mmol/L (3.5-5.1)
[2020-05-15 23:06] LABS: HBsAG-EMPLOYEE EXPOSURE Negative (Negative)
[2020-05-15 23:11] LABS: ALBUMIN 2.2 g/dL (3.4-5.0); CALCIUM 7.4 mg/dL (8.5-10.1); CREATININE 2.8 mg/dL (0.6-1.3); MAGNESIUM 2.2 mg/dL (1.8-2.4); POTASSIUM 4.1 mmol/L (3.5-5.1)
[2020-05-16] VITALS (53 sets, daily range): BP systolic 85–116; BP diastolic 44–81
[2020-05-16 03:15] LABS: ABSOLUTE BASOPHILS 0.1 thou/uL (0.0-0.2); ABSOLUTE EOSINOPHILS 0.1 thou/uL (0.0-0.7); ABSOLUTE LYMPHOCYTES 2.3 thou/uL (0.8-5.3); ABSOLUTE MONOCYTES 0.4 thou/uL (0.0-1.2); ABSOLUTE NEUTROPHILS 5.7 thou/uL (1.6-8.1); BASOPHILS 0.9 %; EOSINOPHILS 1.4 %; LYMPHOCYTES 26.9 %; MCH 32.2 pg (26.0-34.0); MCHC 33.1 g/dL (28.0-37.0); MCV 97.2 fL (80.0-100.0); MONOCYTES 4.8 %; MPV 6.4 fl. (7.2-11.1); NUCLEATED RBCS 0 /100WBC; WBC 8.6 thou/uL (4.0-11.0)
[2020-05-16 03:21] LABS: HEMOGLOBIN 10.9 gm/dL (14.0-18.0); PLATELET COUNT* 162 thou/uL (150-400)
[2020-05-16 03:38] LABS: ALBUMIN 2.1 g/dL (3.4-5.0); ALKALINE PHOSPHATASE 101 U/L (46-116); ANION GAP 15 mmol/L (7-16); BUN 28 mg/dL (7-18); CALCIUM 7.2 mg/dL (8.5-10.1); CHLORIDE 118 mmol/L (98-107); CO2 17 mmol/L (21-32); CREATININE 2.9 mg/dL (0.6-1.3); GLUCOSE 229 mg/dL (70-99); MAGNESIUM 2.2 mg/dL (1.8-2.4); PHOSPHORUS* 2.3 mg/dL (2.5-4.9); POTASSIUM 3.9 mmol/L (3.5-5.1); SGOT 55 U/L (15-37); SGPT 47 U/L (30-65); SODIUM 150 mmol/L (136-145); TOTAL BILIRUBIN 0.3 mg/dL (<0.1-1.0); TOTAL PROTEIN 5.1 g/dL (6.4-8.2)
[2020-05-16 04:01] LABS: LIPASE 5693 U/L (73-393)
[2020-05-16 04:49] LABS: TRIGLYCERIDE 320 mg/dL (<150)
[2020-05-16 08:03] LABS: CALCIUM 7.2 mg/dL (8.5-10.1); MAGNESIUM 2.2 mg/dL (1.8-2.4); PHOSPHORUS* 2.4 mg/dL (2.5-4.9); POTASSIUM 4.1 mmol/L (3.5-5.1)
[2020-05-16 09:09] LABS: BE -10.6 mmol/L (-2 to +3); PCO2 35.4 mmHg (35.0-45.0); PO2 107.3 mmHg (75.0-100.0)
[2020-05-16 11:58] LABS: ABSOLUTE BASOPHILS 0.1 thou/uL (0.0-0.2); ABSOLUTE EOSINOPHILS 0.1 thou/uL (0.0-0.7); ABSOLUTE LYMPHOCYTES 1.6 thou/uL (0.8-5.3); ABSOLUTE MONOCYTES 0.3 thou/uL (0.0-1.2); ABSOLUTE NEUTROPHILS 4.1 thou/uL (1.6-8.1); BASOPHILS 1.2 %; EOSINOPHILS 1.6 %; HEMATOCRIT 28.4 % (42.0-52.0); HEMOGLOBIN 9.4 gm/dL (14.0-18.0); LYMPHOCYTES 25.6 %; MCH 31.8 pg (26.0-34.0); MCV 96.4 fL (80.0-100.0); MONOCYTES 4.3 %; MPV 6.7 fl. (7.2-11.1); NUCLEATED RBCS 0 /100WBC; PLATELET COUNT* 131 thou/uL (150-400); POLYS 67.3 %; RBC 2.95 mil/uL (4.50-6.00); RDW-CV 14.2 % (10.5-14.5); WBC 6.1 thou/uL (4.0-11.0)
[2020-05-16 12:07] LABS: ALBUMIN 1.8 g/dL (3.4-5.0); PHOSPHORUS* 2.4 mg/dL (2.5-4.9); POTASSIUM 3.5 mmol/L (3.5-5.1)
[2020-05-17] VITALS (88 sets, daily range): BP systolic 86–137; BP diastolic 49–83
[2020-05-17 05:15] LABS: HEMOGLOBIN 8.8 gm/dL (14.0-18.0); MCH 32.3 pg (26.0-34.0); MCHC 33.8 g/dL (28.0-37.0); MCV 95.5 fL (80.0-100.0); MPV 6.8 fl. (7.2-11.1); RBC 2.72 mil/uL (4.50-6.00); RDW-CV 13.3 % (10.5-14.5); WBC 7.7 thou/uL (4.0-11.0)
[2020-05-17 05:31] LABS: ALBUMIN 1.8 g/dL (3.4-5.0); BUN 32 mg/dL (7-18); CALCIUM 7.4 mg/dL (8.5-10.1); CHLORIDE 111 mmol/L (98-107); CO2 19 mmol/L (21-32); CREATININE 3.3 mg/dL (0.6-1.3); GLUCOSE 277 mg/dL (70-99); MAGNESIUM 1.9 mg/dL (1.8-2.4); PHOSPHORUS* 3.4 mg/dL (2.5-4.9)
[2020-05-17 05:35] LABS: ANION GAP 12 mmol/L (7-16); POTASSIUM 4.8 mmol/L (3.5-5.1); SODIUM 142 mmol/L (136-145)
[2020-05-17 06:26] LABS: BE -10.7 mmol/L (-2 to +3); PCO2 33.3 mmHg (35.0-45.0); PO2 65.5 mmHg (75.0-100.0)
[2020-05-17 06:27] LABS: pH 7.274 (7.340-7.450)
[2020-05-17 10:22] LABS: BE -6.5 mmol/L (-2 to +3); PCO2 35.3 mmHg (35.0-45.0); PO2 68.9 mmHg (75.0-100.0)
[2020-05-17 16:44] LABS: BE -6.9 mmol/L (-2 to +3); PCO2 34.3 mmHg (35.0-45.0)
[2020-05-17 16:46] LABS: PO2 46.9 mmHg (75.0-100.0)
[2020-05-18] VITALS (69 sets, daily range): BP systolic 102–134; BP diastolic 67–90
[2020-05-18 05:13] LABS: ANION GAP 14 mmol/L (7-16); BUN 33 mg/dL (7-18); CALCIUM 8.1 mg/dL (8.5-10.1); CHLORIDE 108 mmol/L (98-107); CO2 19 mmol/L (21-32); GLUCOSE 384 mg/dL (70-99); POTASSIUM 4.6 mmol/L (3.5-5.1); SODIUM 141 mmol/L (136-145)
--- NOTE | 2020-05-18 09:57 | CON ---
[address] [address] CONSULTATION Name: RONAK JOE Room: [address] IN M.R.#: [id number] Admission: 05/14/20 Attend Phys: Darleen Gil MD Discharge: Date of : 89 Report #: [id number] THIS REPORT FOR: cc: RICARDO - No family physician/PCP RICARDO - No family physician/PCP Ethan Freeman MD ~ DATE OF SERVICE: 05/15/2020 INDICATION FOR CONSULTATION: Ventilator management. HISTORY OF PRESENT ILLNESS: A 34-year-old gentleman with past medical history as mentioned below. This does include a history of polysubstance abuse. The patient previously had a prolonged stay in this hospital on the ventilator in 2015 and in fact at that time had a PEG and a trach. He is an active smoker. The patient at this time is now admitted again with DKA. He also had altered mental status on initial presentation and needed to be endotracheally intubated for airway protection. The patient currently is on the ventilator. He is currently oxygenating and ventilating adequately. Initially, he was on Versed and propofol infusions overnight. I tapered off the Versed, which was just discontinued this morning and we started fentanyl, currently he is on 50 of propofol and also 50 of fentanyl. Earlier, we had tried decreasing his propofol; however, the patient became significantly tachycardic and heart rate was sustained for a long period of time in the mid 130s. The patient was administered low pressure at that time. The patient subsequently had been re-sedated and this time appears to be calm. Heart rate is around 100. He is also hemodynamically stable. The patient is reported to have been on top of hitting his head before he was admitted. He is not known to have any respiratory complaints prior to admission. He as above is unable to provide a further history or review of systems. PAST MEDICAL HISTORY: Polysubstance abuse, type 1 diabetes, prolonged stay on the ventilator in this hospital in 2015. The patient at that time had a PEG as well as trach. These were subsequently reversed anxiety, depression. The patient's chest x-ray shows considerable hyperinflation and is consistent with COPD, although I do not see the diagnosis on his records. He has had a suicidal attempt in the past. Various orthopedic surgeries, spine fracture at the level of T4 and L5. He is noted to be MRSA positive previously in 2007, esophageal Candidiasis, hepatitis C, chronic back pain, orbital fracture. SOCIAL HISTORY: There is an extensive history of smoking, also methamphetamine use, marijuana use, benzodiazepine use, and opiate use. It is not known to me as to whether the patient uses significant amounts of alcohol as well or not. The patient's last available echocardiogram is from 2015[place] [address] CONSULTATION Name: HEATHRONAK DAVE SHANA Room: [address] IN ..#: [id number] Admission: 05/14/20 Attend Phys: Darleen Gil MD Discharge: Date of : 89 Report #: [id number] ventricular ejection fraction of 70% without elevation in right heart pressures. ALLERGIES: WASPS, STINGS AND NICKEL. CUR[facility] MEDICATIONS: [facility]. HOME MEDICATIONS: The list in [facility] also reviewed. However, this may not represent his fullness. The patient is unable to provide further information. FAMILY HISTORY: No pertinent family history known at this time. PHYSICAL EXAMINATION: GENERAL: He is sedated with propofol as well as fentanyl as above. He had only recently discontinued his Versed. VITAL SIGNS: Has a pulse of 106 and a blood pressure of 107/75. He is saturating 98%. He is on 30% FiO2 with a tidal volume of 500 and his AC rate is set at 14. He is breathing at 16. He is afebrile with a temperature of 37.0 this morning. HEENT: Head is normocephalic and atraumatic. Endotracheal tube is in good position, slightly high in the trachea. NECK: Does not show raised JVP, asymmetry, mass or lymph nodes. He does have a central line in place. CHEST: Symmetrical expansion on inspection and palpation. On auscultation, chest is clear. HEART: Regular. There is no murmur. ABDOMEN: Soft and nontender. EXTREMITIES: Lower extremities show no edema, no calf tenderness. SKIN: Dry and intact. NEUROLOGICAL: Moves all extremities bilaterally equally and spontaneously with no focal deficit identified. LABORATORY DATA: The patient's lab work is in [facility] and this is reviewed. A rise in creatinine this morning is noted. The patient's chest x-ray shows considerable hyperinflation as above. IMAGING STUDY: The patient had a CT head as well as C-spine, both the reports are in [facility] and are reviewed and do not show regular abnormalities. ASSESSMENT AND PLAN: 1. Acute respiratory failure secondary to altered mental status and diabetic ketoacidosis. Note that the patient also does have a history of polysubstance abuse. At this time, I would continue fentanyl. If needed, we will increase fentanyl up to a 100. I would like to try to taper off his propofol and start Precedex instead. I have changed his Versed to p.r.n. We will see how he [place] [address] [address] CONSULTATION Name: RONAK JOE Room: [address] ADM IN M.R.#: [id number] Admission: 05/14/20 Attend Phys: Darleen Gil MD Discharge: Date of : 89 Report #: [id number] responds to switching propofol over to Precedex if he does well. Potentially a trial of weaning trial could be done later this afternoon. Otherwise, we will plan to attempt to try to extubate him tomorrow morning. 2. Chronic obstructive pulmonary disease. The patient's chest x-ray is consistent with significant hyperinflation. I suspect that he has significant COPD at this young age of only 34. Objectively, we have an alpha-1 antitrypsin level; otherwise, I will go ahead and obtain one. He was significantly tachycardic. Therefore, I have only ordered low dose Xopenex for now. We will increase dose if he is able to tolerate. Note that he does have a history of smoking. 3. Diabetic ketoacidosis. I would defer management to the primary service as well as a Nephrology. 4. Altered mental status/possibility of aspiration. I do not see any obvious infiltrates on the patient's chest x-ray, regardless, I will go ahead and obtain a sputum, if there is a sputum available, we will repeat a nasal swab for methicillin-resistant Staphylococcus aureus and note that he has been MRSA positive in the past. 5. Acute renal insufficiency/severe hypernatremia. I would defer management of IV fluids to Dr. Maguire. From a pulmonary point of view, the patient should be able to tolerate more IV fluids. 6. Polysubstance abuse. The patient is an active smoker and is noted to also be positive for benzodiazepines, opiates as well as amphetamines and there is a reported previous use of marijuana as well as alcohol as well. 7. Past prolonged stable on ventilator with a trach and PEG. Interestingly, after a drug overdose, primarily amphetamine, which is unusual as amphetamine is a stimulant. 8. Deep venous thrombosis prophylaxis, Lovenox. 9. Gastrointestinal prophylaxis, Protonix. 10. The patient is critically ill at this time. Total time spent providing critical care to this patient today is around 45 minutes. <ELECTRONICALLY SIGNED> By: Ethan Freeman MD 05/18/20 0957 1136 1214Aalison Freeman MD /nt
[2020-05-19 00:45] VITALS: BP 114/83
[2020-05-19 04:39] VITALS: BP 117/83
[2020-05-19 06:23] LABS: ANION GAP 11 mmol/L (7-16); BUN 37 mg/dL (7-18); CALCIUM 8.2 mg/dL (8.5-10.1); CHLORIDE 106 mmol/L (98-107); CO2 21 mmol/L (21-32); CREATININE 2.5 mg/dL (0.6-1.3); GLUCOSE 341 mg/dL (70-99); POTASSIUM 4.1 mmol/L (3.5-5.1); SODIUM 138 mmol/L (136-145)
[2020-05-19 06:45] LABS: ABSOLUTE EOSINOPHILS 0.1 thou/uL (0.0-0.7); ABSOLUTE MONOCYTES 0.2 thou/uL (0.0-1.2); BASOPHILS 0.3 %; EOSINOPHILS 2.1 %; HEMATOCRIT 28.4 % (42.0-52.0); HEMOGLOBIN 9.6 gm/dL (14.0-18.0); LYMPHOCYTES 18.4 %; MCH 31.7 pg (26.0-34.0); MCHC 33.8 g/dL (28.0-37.0); MCV 93.7 fL (80.0-100.0); MONOCYTES 4.4 %; MPV 6.5 fl. (7.2-11.1); NUCLEATED RBCS 0 /100WBC; POLYS 74.8 %; RBC 3.03 mil/uL (4.50-6.00); WBC 5.4 thou/uL (4.0-11.0)
[2020-05-19 06:46] LABS: PLATELET COUNT* 203 thou/uL (150-400)
[2020-05-19 07:55] VITALS: BP 120/83
[2020-05-19 12:00] VITALS: BP 132/95
[2020-05-19 16:00] VITALS: BP 133/96
[2020-05-20 00:31] VITALS: BP 127/92
[2020-05-20 04:43] VITALS: BP 133/92
[2020-05-20 04:56] LABS: HEMATOCRIT 28.4 % (42.0-52.0); HEMOGLOBIN 9.6 gm/dL (14.0-18.0); MCH 31.3 pg (26.0-34.0); MCHC 33.7 g/dL (28.0-37.0); MCV 92.7 fL (80.0-100.0); MPV 6.7 fl. (7.2-11.1); RBC 3.07 mil/uL (4.50-6.00); RDW-CV 12.7 % (10.5-14.5); WBC 5.4 thou/uL (4.0-11.0)
[2020-05-20 05:01] LABS: CALCIUM 8.6 mg/dL (8.5-10.1); CREATININE 1.9 mg/dL (0.6-1.3); POTASSIUM 3.9 mmol/L (3.5-5.1)
[2020-05-20 07:40] VITALS: BP 142/102
[2020-05-20 16:04] VITALS: BP 135/100
[2020-05-20 21:00] VITALS: BP 142/100
[2020-05-21 05:04] LABS: ABSOLUTE BASOPHILS 0.1 thou/uL (0.0-0.2); ABSOLUTE EOSINOPHILS 0.2 thou/uL (0.0-0.7); ABSOLUTE LYMPHOCYTES 1.8 thou/uL (0.8-5.3); ABSOLUTE MONOCYTES 0.3 thou/uL (0.0-1.2); ABSOLUTE NEUTROPHILS 3.4 thou/uL (1.6-8.1); BASOPHILS 1.1 %; EOSINOPHILS 2.7 %; HEMATOCRIT 30.1 % (42.0-52.0); HEMOGLOBIN 10.1 gm/dL (14.0-18.0); LYMPHOCYTES 30.5 %; MCH 31.4 pg (26.0-34.0); MCHC 33.4 g/dL (28.0-37.0); NUCLEATED RBCS 0 /100WBC; PLATELET COUNT* 264 thou/uL (150-400); POLYS 59.7 %; RBC 3.21 mil/uL (4.50-6.00); RDW-CV 13.1 % (10.5-14.5); WBC 5.8 thou/uL (4.0-11.0)
[2020-05-21 05:15] LABS: CALCIUM 8.9 mg/dL (8.5-10.1); CREATININE 1.9 mg/dL (0.6-1.3); MAGNESIUM 1.6 mg/dL (1.8-2.4); POTASSIUM 4.7 mmol/L (3.5-5.1)
[2020-05-21 08:00] VITALS: BP 130/95
[2020-05-21 15:24] VITALS: BP 123/90
[2020-05-21 20:00] VITALS: BP 124/90
[2020-05-22 00:05] VITALS: BP 112/77
[2020-05-22 03:56] VITALS: BP 105/69
[2020-05-22 07:45] VITALS: BP 130/91
[2020-05-22 14:05] LABS: ALBUMIN 2.1 g/dL (3.4-5.0); CALCIUM 8.8 mg/dL (8.5-10.1); CREATININE 1.3 mg/dL (0.6-1.3); POTASSIUM 4.5 mmol/L (3.5-5.1); TOTAL BILIRUBIN 0.2 mg/dL (<0.1-1.0)
[2020-05-22 16:00] VITALS: BP 114/76
[2020-05-22 23:02] VITALS: BP 120/76
[2020-05-23 08:00] VITALS: BP 148/85
[2020-05-23 16:35] VITALS: BP 136/100
[2020-05-23 20:30] VITALS: BP 127/91
[2020-05-24 01:30] VITALS: BP 129/91
[2020-05-24 04:44] VITALS: BP 146/99
[2020-05-24 08:00] VITALS: BP 147/99
[2020-05-24 15:27] VITALS: BP 135/88
[2020-05-25] MEDS ORDERED: BUSPIRONE HCL5 MG PO (08:49)
[2020-05-25] MEDS ORDERED: HUMALOG100 UNIT/1 SUBQ ×2 (08:49)
[2020-05-25] MEDS ORDERED: NEURONTIN600 MG PO (08:49)
[2020-05-25] MEDS ORDERED: SEROQUEL 50 MG50 MG PO (08:49)
[2020-05-25] MEDS ORDERED: VOLTAREN GEL 1100 G1 TOP (08:49)
[2020-05-25] MEDS ORDERED: MELATONIN3 MG PO (08:49)
[2020-05-25] MEDS ORDERED: ACETAMINOPHEN325 M1 PO (08:49)
[2020-05-25] MEDS ORDERED: LIDOPATCH1 EACH TOP (08:49)
[2020-05-25] MEDS ORDERED: BROVANA15 MCG/2 M INH (08:49)
[2020-05-25] MEDS ORDERED: LORAZEPAM 0.50.5 MG PO ×2 (08:49→10:13)
[2020-05-25] MEDS ORDERED: TRAMADOL 50 MG50 MG PO ×2 (08:49→10:13)
[2020-05-25] MEDS ORDERED: LANTUS SUBQ (08:49)
[2020-05-25] MEDS ORDERED: LEVALBUTER1.25 MG/0. INH (08:49)
[2020-05-25 08:57] LABS: ABSOLUTE BASOPHILS 0.1 thou/uL (0.0-0.2); ABSOLUTE EOSINOPHILS 0.3 thou/uL (0.0-0.7); ABSOLUTE LYMPHOCYTES 2.7 thou/uL (0.8-5.3); ABSOLUTE MONOCYTES 0.4 thou/uL (0.0-1.2); BASOPHILS 1.9 %; EOSINOPHILS 3.4 %; HEMATOCRIT 27.7 % (42.0-52.0); HEMOGLOBIN 9.4 gm/dL (14.0-18.0); LYMPHOCYTES 35.4 %; MCH 31.8 pg (26.0-34.0); MCHC 34.2 g/dL (28.0-37.0); MONOCYTES 5.7 %; MPV 5.9 fl. (7.2-11.1); NUCLEATED RBCS 0 /100WBC; PLATELET COUNT* 544 thou/uL (150-400); POLYS 53.6 %; RBC 2.97 mil/uL (4.50-6.00); WBC 7.6 thou/uL (4.0-11.0)
[2020-05-25 09:13] LABS: CALCIUM 9.2 mg/dL (8.5-10.1); CREATININE 1.2 mg/dL (0.6-1.3); POTASSIUM 4.8 mmol/L (3.5-5.1)
[2020-05-25 09:14] LABS: ALBUMIN 2.3 g/dL (3.4-5.0); TOTAL BILIRUBIN 0.2 mg/dL (<0.1-1.0); TOTAL PROTEIN 6.6 g/dL (6.4-8.2)
[2020-05-25 16:05] VITALS: BP 125/88
[2020-05-25 20:00] VITALS: BP 133/93
--- NOTE | 2020-05-26 18:58 | EKG ---
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 : 1985 Requested By: Darleen Gil Order Number: [id number] Reading MD: Eran Ferrer Measurements Intervals [place] Rate: 125 P: 64 MD: 162 QRS: 52 QRSD: 85 T: 32 QT: 323 QTc: 466 Interpretive Statements Sinus tachycardia Probable left atrial enlargement Possible anteroseptal infarct, old Compared to ECG 05/14/2020 16:32:13 Myocardial infarct finding now present T-wave abnormality no longer present Possible ischemia no longer present Electronically Signed On 05-26-2020 18:58:16 CDT by Eran Ferrer [email or web address] <ELECTRONICALLY SIGNED> By: Eran Ferrer MD, FACC 05/26/20 1858 1441 1441 Eran Ferrer MD, FACC /EPI
[2020-05-26 20:31] VITALS: BP 137/93
[2020-05-27 08:00] VITALS: BP 139/75
[2020-05-27 11:01] VITALS: BP 139/75
== END 2020-05-27 12:48 | disposition home or self-care (01) | DRG 871 ==
LOC: M.ERS 16:24 → M.TBA-ER 18:30 → M.ICU 22:28 → M.2W 05-18 19:28 → M.ORTHSURG 05-20 16:52
PROVIDERS: Emergency Medicine Emergency Medical Services; Internal Medicine; Internal Medicine Critical Care Medicine; Internal Medicine Nephrology; Nurse Practitioner Family; Pediatrics; Personal Emergency Response Attendant; ADMIT Internal Medicine; ATTEND Internal Medicine
DX: A41.9 Sepsis, unspecified organism (principal); E10.10 Type 1 diabetes mellitus with ketoacidosis without coma; J96.01 Acute respiratory failure with hypoxia; N17.0 Acute kidney failure with tubular necrosis; J15.6 Pneumonia due to other Gram-negative bacteria; J69.0 Pneumonitis due to inhalation of food and vomit; E87.0 Hyperosmolality and hypernatremia; G93.40 Encephalopathy, unspecified; J44.0 Chronic obstructive pulmonary disease with (acute) lower respiratory infection; F32.9 Major depressive disorder, single episode, unspecified; F41.9 Anxiety disorder, unspecified; F19.10 Other psychoactive substance abuse, uncomplicated; F17.210 Nicotine dependence, cigarettes, uncomplicated; I95.9 Hypotension, unspecified; E86.1 Hypovolemia; E86.9 Volume depletion, unspecified; D64.9 Anemia, unspecified; D69.6 Thrombocytopenia, unspecified; T14.91XA Suicide attempt, initial encounter; Z20.822 Contact with and (suspected) exposure to COVID-19; Z87.442 Personal history of urinary calculi; Z86.14 Personal history of Methicillin resistant Staphylococcus aureus infection; Z87.81 Personal history of (healed) traumatic fracture; Z88.8 Allergy status to other drugs, medicaments and biological substances; X83.8XXA Intentional self-harm by other specified means, initial encounter; Y93.89 Activity, other specified; Y92.89 Other specified places as the place of occurrence of the external cause; Y99.8 Other external cause status

== ENCOUNTER 2020-07-01 22:25 | Inpatient (IN) | payer MEDICAID ==
[~2020-07-01] VITALS: Ht 182.9 cm; Wt 61.7 kg
--- NOTE | ~2020-07-01 | CON ---
[address] [address] CONSULTATION Name: RONAK JOE Room: [address] IN M.R.#: [id number] Admission: 07/02/20 Attend Phys: Darleen Gil MD Discharge: Date of : [birth year] Report #: [id number] THIS REPORT FOR: cc: FAM - No family physician/PCP FAM - No family physician/PCP Chandler Sandy MD ~ DOC #: [id number] Chandler Sandy MD DATE OF CONSULTATION: 07/02/2020 HISTORY OF PRESENT ILLNESS: This is a 34-year-old male patient who was seen by me for alteration in mental status. He also is pretty dysarthric. Records were reviewed and I talked to the patient. As records indicate and my interview with the patient indicate, he is a very poor historian. He is also somewhat evasive historian when the talk about any drug abuse. He is a diabetic and looks like he is a noncompliant diabetic, and his blood sugar was pretty high. His lactic acid was high, but it is coming down. It looks like he has a UTI. REVIEW OF SYSTEMS: Positive for a spine injury and a left foot drop. He has also ankle injury, facial injury. He says he still has metals in the face, but hardware from the back was removed. He has a history of polysubstance abuse, a suicidal attempt, kidney stones, also has a history of anxiety and tracheostomy, genital warts as per records. A 14-point review of system was otherwise noncontributory. PAST MEDICAL HISTORY: Positive for psychiatric problem. FAMILY HISTORY: Negative for early age stroke. SOCIAL HISTORY: He says he does not drink alcohol, but he smokes. PHYSICAL EXAMINATION: Difficult because his speech is pretty slurred, but he is still able to talk. I think he tells me it is May, but he is so difficult to understand. Cranial nerve examination is difficult because of sleepiness, but he was attempting. Extraocular movements looks intact. He moves all 4 extremities. He has a preexisting deficit in the left lower extremity. He did not cooperate with cerebellar or sensory examination. There is no meningeal sign. There is no carotid bruit and this patient does not have much edema. Cardiac examination is unremarkable. No respiratory difficulty was noticed. Blood pressure is 103/71, temperature is 97.2. He did have a CT, which was unremarkable. IMPRESSION: The patient's symptoms are most likely [place] [address] CONSULTATION Name: RONAK JOE Room: [address] IN ..#: [id number] Admission: 07/02/20 Attend Phys: Darleen iGl MD Discharge: Date of : 89 Report #: [id number] caused by high blood sugar, urinary tract infection and his drug abuse. I cannot exclude the possibility of stroke, which can occur with such uncontrolled diabetes and multiple other vascular risk factor. If MRI can be done, then we will do an MRI of the brain to exclude some pathology. I will get an EEG done. Main thing he needs is supportive care and adjustment is medication. I discussed all of it with the patient. The patient says no. There is no contraindication for MRI. We will check our MRI department before doing that. Thank you very much for this referral. MD CORRIE Leavitt/LENIN By: 1218 1934Ptabby Sandy MD /nt
--- NOTE | ~2020-07-01 | EEG ---
[address] [address] EEG STUDY REPORT Name: RONAK JOE Room: [address] IN M.R.#: [id number] Admission: 07/02/20 Attend Phys: Darleen Gil MD Discharge: Date of : 89 Report #: [id number] THIS REPORT FOR: cc: FAM - No family physician/PCP FAM - No family physician/PCP Chandler Sandy MD ~ DOC #: [id number] Chandler Sandy MD DATE OF SERVICE: 07/02/2020 This patient is being evaluated for altered mental status. EEG was done by placing the electrode by standard 10-20 system of electrode placement. Both referential and sequential montages were used for recording. Background activity in this patient's EEG is about 8 Hz and 30 microvolt. Photic stimulation is unremarkable. The patient became drowsy and that is associated with bilateral slowing and vertex sharp waves. IMPRESSION: This patient's EEG is intermixed with theta range slowing on both sides. There is a nonspecific abnormality, which can occur with encephalopathy, effect of psychotropic medication, dementia, etc. Clinical correlation is recommended. Chandler Sandy MD PK/ANI By: 1725 1735Chandler Sandy MD /catarino
[~2020-07-01 22:25] MED LIST changes: +ACETAMINOPHEN325 M1 PO; +BROVANA15 MCG/2 M INH; +BUSPIRONE HCL5 MG PO; +HUMALOG100 UNIT/1 SUBQ; +LANTUS SUBQ; +LEVALBUTER1.25 MG/0. INH; +LIDOPATCH1 EACH TOP; +LORAZEPAM 0.50.5 MG PO; +MELATONIN3 MG PO; +METFORMIN HCL500 M3 PO; +VOLTAREN GEL 1100 G1 TOP
[2020-07-01 22:32] VITALS: BP 110/79
[2020-07-01 22:52] LABS: BE -7.5 mmol/L (-2 to +3); PCO2 36.3 mmHg (35.0-45.0); PO2 94.6 mmHg (75.0-100.0); pH 7.312 (7.340-7.450)
[2020-07-01 22:59] LABS: ABSOLUTE BASOPHILS 0.1 thou/uL (0.0-0.2); ABSOLUTE EOSINOPHILS 0.1 thou/uL (0.0-0.7); ABSOLUTE LYMPHOCYTES 2.8 thou/uL (0.8-5.3); ABSOLUTE MONOCYTES 0.3 thou/uL (0.0-1.2); ABSOLUTE NEUTROPHILS 2.6 thou/uL (1.6-8.1); BASOPHILS 0.9 %; EOSINOPHILS 1.8 %; LYMPHOCYTES 47.4 %; MCH 31.5 pg (26.0-34.0); MCHC 34.2 g/dL (28.0-37.0); MONOCYTES 5.5 %; MPV 6.7 fl. (7.2-11.1); NUCLEATED RBCS 0 /100WBC; PLATELET COUNT* 264 thou/uL (150-400); POLYS 44.4 %; RDW-CV 13.7 % (10.5-14.5); WBC 5.9 thou/uL (4.0-11.0)
[2020-07-01 23:05] LABS: CALCIUM 9.7 mg/dL (8.5-10.1); CREATININE 1.4 mg/dL (0.6-1.3); POTASSIUM 3.5 mmol/L (3.5-5.1)
[2020-07-01 23:10] LABS: ALBUMIN 3.1 g/dL (3.4-5.0); MAGNESIUM 1.9 mg/dL (1.8-2.4); TOTAL BILIRUBIN 0.2 mg/dL (<0.1-1.0); TOTAL PROTEIN 6.8 g/dL (6.4-8.2)
[2020-07-01] MEDS ORDERED: SEROQUEL 100 M100 MG PO (23:22)
[2020-07-01] MEDS ORDERED: SUBOXONE 8 MG-1 EAC3 PO (23:23)
[2020-07-01] MEDS ORDERED: CELEXA 20 MG TA20 MG PO (23:24)
[2020-07-02] VITALS (21 sets, daily range): BP systolic 91–125; BP diastolic 55–89
[2020-07-02 00:57] LABS: URINE BILIRUBIN NEGATIVE (Negative); URINE BLOOD 1+ (Negative); URINE COLOR YELLOW; URINE GLUCOSE-RANDOM 3+ (Negative); URINE KETONES TRACE (Negative); URINE LEUKOCYTES-REFLEX 1+ (Negative); URINE NITRITE-REFLEX NEGATIVE (Negative); URINE PROTEIN NEGATIVE (Negative); URINE UROBILINOGEN 0.2 E.U./dl (0.2-1.0)
[2020-07-02 01:00] LABS: URINE CLARITY SL CLOUDY
[2020-07-02 01:05] LABS: AMP/METHAMP Negative (Negative); BACTERIA-REFLEX >30 Many /HPF (None Seen); BARBITURATES Negative (Negative); BENZODIAZEPINES POSITIVE (Negative); CASTS None Seen /LPF (None Seen); COCAINE Negative (Negative); METHADONE Negative (Negative); MUCUS 4-6 Moderate strn/LPF (None Seen); OPIATES Negative (Negative); PCP Negative (Negative); SQUAMOUS 0-3 Few /LPF (0-3); THC POSITIVE (Negative); URINE WBC-REFLEX >25 Many /HPF (0-5); WBC CLUMPS Many (None Seen)
[2020-07-02 01:06] LABS: CRYSTALS None Seen /LPF (None Seen)
--- NOTE | 2020-07-02 12:20 | EKG ---
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: MARIA ESTHER : 1985 Requested By: Judie Mallory Order Number: [id number] MD: Saqib Hurtado Measurements Intervals [employer] Rate: 131 P: 48 MA: 146 QRS: 75 QRSD: 89 T: 13 QT: 303 QTc: 448 Interpretive Statements Sinus tachycardia Left atrial enlargement Possible anteroseptal infarct, old Compared to ECG 05/26/2020 14:41:23 No significant changes Electronically Signed On 07-02-2020 12:20:41 CDT by Saqib Hurtado [email or web address] <ELECTRONICALLY SIGNED> By: Saqib Hurtado MD, [facility] 07/02/20 122 29 29 Saqib Hurtado MD, [facility] /EPI
[2020-07-03 04:00] VITALS: BP 116/93
[2020-07-03 04:56] LABS: ABSOLUTE BASOPHILS 0.1 thou/uL (0.0-0.2); ABSOLUTE EOSINOPHILS 0.2 thou/uL (0.0-0.7); ABSOLUTE LYMPHOCYTES 1.8 thou/uL (0.8-5.3); ABSOLUTE MONOCYTES 0.2 thou/uL (0.0-1.2); ABSOLUTE NEUTROPHILS 1.8 thou/uL (1.6-8.1); BASOPHILS 1.3 %; EOSINOPHILS 4.5 %; HEMATOCRIT 32.2 % (42.0-52.0); LYMPHOCYTES 45.6 %; MCH 31.5 pg (26.0-34.0); MCV 92.5 fL (80.0-100.0); MONOCYTES 4.4 %; MPV 6.8 fl. (7.2-11.1); NUCLEATED RBCS 0 /100WBC; PLATELET COUNT* 202 thou/uL (150-400); POLYS 44.2 %; RBC 3.48 mil/uL (4.50-6.00); RDW-CV 13.5 % (10.5-14.5)
[2020-07-03 04:59] LABS: CALCIUM 8.4 mg/dL (8.5-10.1); CREATININE 0.8 mg/dL (0.6-1.3); POTASSIUM 4.3 mmol/L (3.5-5.1)
[2020-07-03 08:00] VITALS: BP 142/111
[2020-07-03 11:25] VITALS: BP 155/107
[2020-07-03 13:21] VITALS: BP 155/107
[2020-07-03 13:22] VITALS: BP 155/107
[2020-07-03 14:11] VITALS: BP 155/107
== END 2020-07-03 13:30 | disposition home or self-care (01) | DRG 871 ==
LOC: M.ERS 22:25 → M.TBA-ER 07-02 01:15 → M.ICU 07-02 02:29 → M.2W 07-02 19:00
PROVIDERS: Internal Medicine; Personal Emergency Response Attendant; ADMIT Internal Medicine; ATTEND Internal Medicine
DX: A41.9 Sepsis, unspecified organism (principal); G93.41 Metabolic encephalopathy; N39.0 Urinary tract infection, site not specified; F32.9 Major depressive disorder, single episode, unspecified; F41.9 Anxiety disorder, unspecified; E10.69 Type 1 diabetes mellitus with other specified complication; Z20.822 Contact with and (suspected) exposure to COVID-19; F17.210 Nicotine dependence, cigarettes, uncomplicated; F19.10 Other psychoactive substance abuse, uncomplicated; R16.0 Hepatomegaly, not elsewhere classified; E10.65 Type 1 diabetes mellitus with hyperglycemia; Z87.81 Personal history of (healed) traumatic fracture; Z93.0 Tracheostomy status; Z86.14 Personal history of Methicillin resistant Staphylococcus aureus infection; Z87.442 Personal history of urinary calculi; Z88.8 Allergy status to other drugs, medicaments and biological substances

== ENCOUNTER 2020-08-15 20:09 | Emergency (ER) | payer MEDICAID ==
[~2020-08-15] VITALS: Ht 188 cm; Wt 52.6 kg
[~2020-08-15 20:09] MED LIST changes: +CELEXA 20 MG TA20 MG PO; +SEROQUEL 100 M100 MG PO; +SUBOXONE 8 MG-1 EAC3 PO
[2020-08-15 20:57] LABS: HEMOGLOBIN 15.6 gm/dL (14.0-18.0); MCH 30.2 pg (26.0-34.0); MCHC 33.9 g/dL (28.0-37.0); MPV 6.4 fl. (7.2-11.1); NUCLEATED RBCS 0 /100WBC; PLATELET COUNT* 663 thou/uL (150-400); RBC 5.17 mil/uL (4.50-6.00); RDW-CV 14.4 % (10.5-14.5); WBC 14.8 thou/uL (4.0-11.0)
[2020-08-15 21:05] LABS: BE -14.5 mmol/L (-2 to +3); PO2 97.3 mmHg (75.0-100.0); pH 7.335 (7.340-7.450)
[2020-08-15 21:12] LABS: ALBUMIN 4.2 g/dL (3.4-5.0); CALCIUM 9.9 mg/dL (8.5-10.1); CREATININE 1.6 mg/dL (0.6-1.3); POTASSIUM 3.9 mmol/L (3.5-5.1); TOTAL BILIRUBIN 0.6 mg/dL (<0.1-1.0); TOTAL PROTEIN 10.2 g/dL (6.4-8.2)
[2020-08-15 21:18] LABS: PCO2 < 17.0 mmHg (35.0-45.0)
[2020-08-15 21:30] LABS: ABSOLUTE MONOCYTES 0.6 thou/uL (0.0-1.2); ABSOLUTE NEUTROPHILS 13.2 thou/uL (1.6-8.1); PLATELET ESTIMATE INCREASED
[2020-08-15 23:00] LABS: URINE BLOOD NEGATIVE (Negative); URINE CLARITY CLEAR; URINE COLOR YELLOW; URINE GLUCOSE-RANDOM 2+ (Negative); URINE LEUKOCYTES-REFLEX NEGATIVE (Negative); URINE NITRITE-REFLEX NEGATIVE (Negative); URINE PROTEIN NEGATIVE (Negative); URINE SPECIFIC GRAVITY 1.025 (1.005-1.030); URINE UROBILINOGEN 0.2 E.U./dl (0.2-1.0)
[2020-08-15 23:00] LABS: PHOSPHORUS* 3.5 mg/dL (2.5-4.9)
[2020-08-15 23:01] LABS: URINE BILIRUBIN 1+ (Negative); URINE KETONES 3+ (Negative)
[2020-08-15 23:05] LABS: ICTOTEST (BILI CONFIRMATORY) Negative (Negative)
[2020-08-15 23:16] LABS: AMP/METHAMP Negative (Negative); BARBITURATES Negative (Negative); BENZODIAZEPINES Negative (Negative); COCAINE Negative (Negative); METHADONE Negative (Negative); OPIATES Negative (Negative); PCP Negative (Negative); THC Negative (Negative)
[2020-08-16 04:05] VITALS: BP 124/78
--- NOTE | 2020-08-16 12:49 | EKG ---
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: : 1985 Requested By: Judie Mallory Order Number: [id number] MD: Eran Ferrer Measurements Intervals [place] Rate: 136 P: 78 MA: 123 QRS: 92 QRSD: 95 T: 74 QT: 388 QTc: 584 Interpretive Statements Sinus tachycardia Borderline right axis deviation Prolonged QT interval Compared to ECG 07/01/2020 22:30:47 Prolonged QT interval now present Atrial abnormality no longer present Myocardial infarct finding no longer present Electronically Signed On 08-16-2020 12:49:49 CDT by Eran Ferrer [email or web address] <ELECTRONICALLY SIGNED> By: Eran Ferrer MD, FACC 08/16/20 1249 01 01 Eran Ferrer MD, FAC /EPI
== END 2020-08-16 04:05 | disposition short-term general hospital (02) ==
LOC: M.ERS 20:09
PROVIDERS: Personal Emergency Response Attendant
DX: E10.10 Type 1 diabetes mellitus with ketoacidosis without coma (principal); Z20.822 Contact with and (suspected) exposure to COVID-19; Z91.14 Patient's other noncompliance with medication regimen; F17.210 Nicotine dependence, cigarettes, uncomplicated; Z88.8 Allergy status to other drugs, medicaments and biological substances; Z87.442 Personal history of urinary calculi; Z86.14 Personal history of Methicillin resistant Staphylococcus aureus infection

== ENCOUNTER 2020-12-01 16:39 | Emergency (ER) | payer MEDICAID ==
[~2020-12-01] VITALS: Ht 188 cm; Wt 60.8 kg
[2020-12-01 18:29] LABS: ABSOLUTE BASOPHILS 0.1 thou/uL (0.0-0.2); ABSOLUTE EOSINOPHILS 0.5 thou/uL (0.0-0.7); ABSOLUTE LYMPHOCYTES 2.7 thou/uL (0.8-5.3); ABSOLUTE MONOCYTES 0.2 thou/uL (0.0-1.2); ABSOLUTE NEUTROPHILS 2.9 thou/uL (1.6-8.1); BASOPHILS 1.2 %; EOSINOPHILS 8.5 %; HEMATOCRIT 35.7 % (42.0-52.0); HEMOGLOBIN 11.4 gm/dL (14.0-18.0); LYMPHOCYTES 42.4 %; MCH 21.9 pg (26.0-34.0); MCV 68.3 fL (80.0-100.0); MONOCYTES 3.3 %; MPV 6.7 fl. (7.2-11.1); NUCLEATED RBCS 0 /100WBC; PLATELET COUNT* 340 thou/uL (150-400); POLYS 44.6 %; RBC 5.23 mil/uL (4.50-6.00); RDW-CV 19.7 % (10.5-14.5); WBC 6.4 thou/uL (4.0-11.0)
[2020-12-01 18:38] LABS: CALCIUM 9.1 mg/dL (8.5-10.1); POTASSIUM 4.4 mmol/L (3.5-5.1)
[2020-12-01 18:43] LABS: ALBUMIN 3.4 g/dL (3.4-5.0); TOTAL BILIRUBIN 0.2 mg/dL (<0.1-1.0); TOTAL PROTEIN 7.4 g/dL (6.4-8.2)
[2020-12-01 18:52] VITALS: BP 127/89
[2020-12-01 21:32] LABS: ANISOCYTOSIS 1+; MICROCYTES 2+; PLATELET ESTIMATE ADEQUATE
== END 2020-12-01 18:53 | disposition home or self-care (01) ==
LOC: M.ERS 16:39
PROVIDERS: Physician Assistant
DX: H81.10 Benign paroxysmal vertigo, unspecified ear (principal); G89.29 Other chronic pain; M54.50 Low back pain, unspecified; E10.9 Type 1 diabetes mellitus without complications; F32.9 Major depressive disorder, single episode, unspecified; F41.9 Anxiety disorder, unspecified; F17.210 Nicotine dependence, cigarettes, uncomplicated; Z79.899 Other long term (current) drug therapy; Z91.048 Other nonmedicinal substance allergy status; W01.0XXA Fall on same level from slipping, tripping and stumbling without subsequent striking against object, initial encounter; Y93.89 Activity, other specified; Y92.89 Other specified places as the place of occurrence of the external cause; Y99.8 Other external cause status

== ENCOUNTER 2021-02-19 16:46 | Inpatient (IN) | payer MEDICAID ==
[~2021-02-19] VITALS: Ht 188 cm; Wt 45.4 kg
--- NOTE | ~2021-02-19 | PROC ---
[address] [address] PROCEDURE REPORT Name: HEATHRONAKSIMON SALDANA Room: [address] IN M.R.#: [id number] Admission: 02/19/21 Attend Phys: Janis Cartagena Discharge: 02/24/21 Date of : 89 Report #: [id number] THIS REPORT FOR: cc: Angelica Looney MD, Elizabeth S. MD [facility],Medical Records Staff ~ For GI report, please see the Provation report in Perceptive 7 content. By: 0656Medical Records Staff [facility] /CYRUS
--- NOTE | ~2021-02-19 | PROC ---
[address] [address] PROCEDURE REPORT Name: MIREYA JOESIMON SALDANA Room: [address] IN M.R.#: [id number] Admission: 02/19/21 Attend Phys: Janis Cartagena Discharge: Date of : 89 Report #: [id number] THIS REPORT FOR: cc: Angelica Looney MD, Elizabeth S. MD [facility],Medical Records Staff ~ For GI report, please see the Provation report in Perceptive 7 content. By: 1036Medical Records Staff [facility] /CYRUS
[2021-02-19 16:54] VITALS: BP 143/100
[2021-02-19 17:28] LABS: HEMATOCRIT 44.7 % (42.0-52.0); HEMOGLOBIN 14.4 gm/dL (14.0-18.0); MCH 24.6 pg (26.0-34.0); MCHC 32.2 g/dL (28.0-37.0); MCV 76.2 fL (80.0-100.0); MPV 6.6 fl. (7.2-11.1); NUCLEATED RBCS 0 /100WBC; PLATELET COUNT* 455 thou/uL (150-400); RBC 5.87 mil/uL (4.50-6.00); RDW-CV 20.5 % (10.5-14.5); WBC 9.1 thou/uL (4.0-11.0)
[2021-02-19 17:35] LABS: CALCIUM 9.9 mg/dL (8.5-10.1); CREATININE 1.8 mg/dL (0.6-1.3); POTASSIUM 4.9 mmol/L (3.5-5.1)
[2021-02-19 17:39] LABS: TOTAL BILIRUBIN 0.6 mg/dL (<0.1-1.0); TOTAL PROTEIN 8.4 g/dL (6.4-8.2)
[2021-02-19 17:49] LABS: ABSOLUTE LYMPHOCYTES 0.6 thou/uL (0.8-5.3); ABSOLUTE MONOCYTES 0.4 thou/uL (0.0-1.2); ABSOLUTE NEUTROPHILS 8.1 thou/uL (1.6-8.1); ANISOCYTOSIS 1+; PLATELET ESTIMATE ADEQUATE
--- NOTE | 2021-02-19 19:09 | NUR ---
SPOKE TO GI, HE WILL PLACE ORDERS. ANABEL
[2021-02-19] MEDS ORDERED: PROTONIX40 M2 PO (20:01)
[2021-02-19 20:33] LABS: BE -15.1 mmol/L (-2 to +3); PCO2 VENOUS 27.7 mmHg (41.0-51.0); PO2 VENOUS 58.5 mmHg (35.0-45.0)
[2021-02-19 22:30] VITALS: BP 123/87
[2021-02-20 00:05] LABS: CALCIUM 8.6 mg/dL (8.5-10.1); CREATININE 1.5 mg/dL (0.6-1.3)
[2021-02-20 00:06] LABS: POTASSIUM 3.7 mmol/L (3.5-5.1)
[2021-02-20 03:32] VITALS: BP 146/95
[2021-02-20 04:08] LABS: ABSOLUTE MONOCYTES 0.4 thou/uL (0.0-1.2); ABSOLUTE NEUTROPHILS 4.4 thou/uL (1.6-8.1); BASOPHILS 0.6 %; EOSINOPHILS 0.2 %; HEMATOCRIT 36.2 % (42.0-52.0); LYMPHOCYTES 16.8 %; MCH 24.4 pg (26.0-34.0); MCHC 32.4 g/dL (28.0-37.0); MCV 75.3 fL (80.0-100.0); MONOCYTES 6.6 %; MPV 6.2 fl. (7.2-11.1); NUCLEATED RBCS 0 /100WBC; POLYS 75.8 %; RBC 4.81 mil/uL (4.50-6.00); RDW-CV 21.4 % (10.5-14.5); WBC 5.8 thou/uL (4.0-11.0)
[2021-02-20 04:10] LABS: HEMOGLOBIN 11.7 gm/dL (14.0-18.0); PLATELET COUNT* 353 thou/uL (150-400)
[2021-02-20 04:27] LABS: ALBUMIN 3.5 g/dL (3.4-5.0); CALCIUM 9.3 mg/dL (8.5-10.1); CREATININE 1.6 mg/dL (0.6-1.3); POTASSIUM 4.1 mmol/L (3.5-5.1); TOTAL BILIRUBIN 0.6 mg/dL (<0.1-1.0); TOTAL PROTEIN 7.2 g/dL (6.4-8.2)
[2021-02-20 05:00] LABS: URINE BLOOD 2+ (Negative); URINE CLARITY CLEAR; URINE COLOR YELLOW; URINE GLUCOSE-RANDOM 2+ (Negative); URINE LEUKOCYTES-REFLEX NEGATIVE (Negative); URINE NITRITE-REFLEX NEGATIVE (Negative); URINE PROTEIN TRACE (Negative); URINE SPECIFIC GRAVITY 1.015 (1.005-1.030); URINE UROBILINOGEN 0.2 E.U./dl (0.2-1.0)
[2021-02-20 05:01] LABS: URINE BILIRUBIN 2+ (Negative); URINE KETONES 3+ (Negative)
[2021-02-20 05:05] LABS: ACETEST (KETONE CONFIRMATORY) Moderate (Negative)
[2021-02-20 05:06] LABS: ICTOTEST (BILI CONFIRMATORY) Negative (Negative)
[2021-02-20 05:08] LABS: AMP/METHAMP Negative (Negative); BARBITURATES Negative (Negative); BENZODIAZEPINES Negative (Negative); COCAINE Negative (Negative); METHADONE Negative (Negative); OPIATES Negative (Negative); PCP Negative (Negative); THC Negative (Negative)
[2021-02-20 05:24] LABS: % SATURATION 28 % (20-39); IRON 119 ug/dL (50-175)
[2021-02-20 05:58] LABS: ESR (SEDRATE) 9 mm/hr (0-15)
[2021-02-20 06:13] VITALS: BP 125/90
[2021-02-20 06:29] LABS: MUCUS 0-3 Light strn/LPF (None Seen); SQUAMOUS 0-3 Few /LPF (0-3)
[2021-02-20 06:33] LABS: BACTERIA-REFLEX None Seen /HPF (None Seen); COARSE GRANULAR CASTS 0-3 Few /LPF (None Seen); CRYSTALS None Seen /LPF (None Seen); URINE WBC-REFLEX None Seen /HPF (0-5)
[2021-02-20 10:05] VITALS: BP 125/89
[2021-02-20 10:09] LABS: CALCIUM 9.2 mg/dL (8.5-10.1); CREATININE 1.6 mg/dL (0.6-1.3); POTASSIUM 3.9 mmol/L (3.5-5.1)
[2021-02-20 10:13] LABS: ALBUMIN 3.2 g/dL (3.4-5.0); MAGNESIUM 1.7 mg/dL (1.8-2.4); TOTAL BILIRUBIN 0.4 mg/dL (<0.1-1.0); TOTAL PROTEIN 6.6 g/dL (6.4-8.2)
--- NOTE | 2021-02-20 12:25 | EKG ---
[place] [address] ELECTROCARDIOGRAM REPORT Name: RONAK JOE Room: [place] [address] ADM IN ..#: [id number] Admission: 02/19/21 Attend Phys: Roberto Meyers Discharge: Date of : 89 Date of Service: 02/19/21 1729 Report #: [id number] THIS REPORT FOR: //name// [facility] ED Test Date: 2021-02-19 Test Time: 17:29:19 Pat Name: RONAK JOE Department: Room: [place] [address] Gender: M Oxygen Equipment Aide: JOSE ALBERTO : 1985 Requested By: Jones Urena Order Number: [id number] MD: Willy Anderson Measurements Intervals [place] Rate: 117 P: 71 AK: 165 QRS: 89 QRSD: 88 T: 66 QT: 317 QTc: 443 Interpretive Statements Sinus tachycardia Compared to ECG 08/15/2020 21:02:19 Prolonged QT interval no longer present Electronically Signed On 02-20-2021 12:25:22 SUPERVISOR TELLERS by Willy Anderson [email or web address] <ELECTRONICALLY SIGNED> By: Lucille Anderson MD, [facility] 02/20/21 1225 1729 1729 Lucille Anderson MD, [facility] /EPI
[2021-02-20 14:00] VITALS: BP 133/93
[2021-02-20 18:31] VITALS: BP 136/94
[2021-02-20 20:37] LABS: CALCIUM 8.5 mg/dL (8.5-10.1); CREATININE 1.3 mg/dL (0.6-1.3); POTASSIUM 3.8 mmol/L (3.5-5.1)
[2021-02-20 20:42] LABS: ALBUMIN 2.7 g/dL (3.4-5.0); TOTAL BILIRUBIN 0.4 mg/dL (<0.1-1.0); TOTAL PROTEIN 5.9 g/dL (6.4-8.2)
[2021-02-20 22:30] VITALS: BP 135/97
[2021-02-21 02:27] VITALS: BP 137/102
[2021-02-21 04:39] LABS: ABSOLUTE EOSINOPHILS 0.1 thou/uL (0.0-0.7); ABSOLUTE LYMPHOCYTES 1.9 thou/uL (0.8-5.3); ABSOLUTE MONOCYTES 0.3 thou/uL (0.0-1.2); ABSOLUTE NEUTROPHILS 2.1 thou/uL (1.6-8.1); BASOPHILS 0.9 %; EOSINOPHILS 2.3 %; HEMATOCRIT 32.9 % (42.0-52.0); HEMOGLOBIN 10.7 gm/dL (14.0-18.0); LYMPHOCYTES 42.5 %; MCH 24.7 pg (26.0-34.0); MCHC 32.6 g/dL (28.0-37.0); MCV 75.8 fL (80.0-100.0); MPV 6.7 fl. (7.2-11.1); NUCLEATED RBCS 0 /100WBC; POLYS 48.3 %; RBC 4.34 mil/uL (4.50-6.00); RDW-CV 21.8 % (10.5-14.5); WBC 4.4 thou/uL (4.0-11.0)
[2021-02-21 04:55] LABS: CALCIUM 8.5 mg/dL (8.5-10.1); CREATININE 1.2 mg/dL (0.6-1.3); POTASSIUM 3.7 mmol/L (3.5-5.1)
[2021-02-21 04:59] LABS: PLATELET COUNT* 227 thou/uL (150-400)
[2021-02-21 06:25] VITALS: BP 129/93
[2021-02-21 07:07] LABS: GLYCOHEMOGLOBIN (HGB A1C) 11.9 % (4.8-5.6)
[2021-02-21 10:08] VITALS: BP 141/95
[2021-02-21 13:35] LABS: ALBUMIN 2.7 g/dL (3.4-5.0); CALCIUM 8.2 mg/dL (8.5-10.1); CREATININE 1.3 mg/dL (0.6-1.3); POTASSIUM 4.6 mmol/L (3.5-5.1); TOTAL BILIRUBIN 0.4 mg/dL (<0.1-1.0); TOTAL PROTEIN 6.1 g/dL (6.4-8.2)
[2021-02-21 15:52] VITALS: BP 131/97
[2021-02-21 20:00] VITALS: BP 124/94
[2021-02-22] VITALS: BP 125/89
--- NOTE | 2021-02-22 01:59 | NUR ---
PT AWAKE MOST OF NIGHT. C/O GENERALIZED ABD PAIN AND ASKING FOR IV PAIN MED Q 4HR. UP TO BSC INDEPENDENTLY AND STEADY FOR BM, LG UNFORMED, NO DELANO BLOOD NOTED. PT NPO AFTER MN FOR GASTRIC EMPTYING TEST. LANTUS INSULIN HELD PER PT REQUEST. TELEMETRY ON SHOWING SR.
[2021-02-22 04:00] VITALS: BP 109/60
[2021-02-22 04:28] LABS: ABSOLUTE EOSINOPHILS 0.1 thou/uL (0.0-0.7); ABSOLUTE LYMPHOCYTES 1.3 thou/uL (0.8-5.3); ABSOLUTE MONOCYTES 0.2 thou/uL (0.0-1.2); ABSOLUTE NEUTROPHILS 3.1 thou/uL (1.6-8.1); EOSINOPHILS 1.8 %; HEMATOCRIT 36.5 % (42.0-52.0); HEMOGLOBIN 11.6 gm/dL (14.0-18.0); LYMPHOCYTES 27.3 %; MCH 24.4 pg (26.0-34.0); MCHC 31.7 g/dL (28.0-37.0); MPV 6.8 fl. (7.2-11.1); NUCLEATED RBCS 0 /100WBC; PLATELET COUNT* 198 thou/uL (150-400); POLYS 65.9 %; RBC 4.74 mil/uL (4.50-6.00); RDW-CV 21.1 % (10.5-14.5); WBC 4.6 thou/uL (4.0-11.0)
[2021-02-22 06:53] LABS: OVALOCYTES Occasional; PLATELET ESTIMATE ADEQUATE
[2021-02-22 06:54] LABS: ANISOCYTOSIS 2+; HYPOCHROMASIA 1+
[2021-02-22 09:00] VITALS: BP 142/93
--- NOTE | 2021-02-22 09:00 | NUR ---
PTS MORNING BS READING >500. LAB ORDERS ENTERED FOR GLUCOSE CHECK.
--- NOTE | 2021-02-22 09:57 | NUR ---
wright removed, no complications
--- NOTE | 2021-02-22 10:02 | CON ---
[facility] [address] [place] [address] CONSULTATION Name: RONAK JOE Room: [address] IN M.R.#: [id number] Admission: 02/19/21 Attend Phys: Janis Cartagena Discharge: Date of : 89 Report #: [id number] THIS REPORT FOR: cc: Angelica Looney MD, Elizabeth S. MD Vardakis, Gregory DO ~ cc: Roberto Meyers DO, Angelica Looney MD DATE OF CONSULTATION: 02/20/2021 REFERRING PHYSICIAN: Roberto Meyers DO REASON FOR CONSULTATION: Hematemesis. IMPRESSION: 1. Abdominal pain associated with nausea, vomiting and overt hematemesis - evaluate for possible peptic ulcer disease, reflux esophagitis. 2. History of chronic marijuana use with possibility of cyclic vomiting syndrome contributing to abdominal pain. 3. Diabetes mellitus, poorly controlled. 4. History of polysubstance abuse with history of both methamphetamine and marijuana in the past. 5. History of remote hepatitis C with quantitative HCV RNA by PCR being negative in 2016. RECOMMENDATIONS: 1. Since the patient had some overt hematemesis and appeared to be hemodynamically stable, we will proceed with an upper endoscopy today and make further recommendations thereafter. I have discussed the plans with the patient as well and he is agreeable to same. 2. We will also check a stat urine drug screen to ensure he is not using any drugs as that would be contributing to his issues. 3. With his underlying poorly controlled diabetes, certainly a possibility of gastroparesis needs to be entertained. 4. We will also await results from an abdominal ultrasound to evaluate for a biliary tract disease. PLAN: I have discussed the plan with the patient as well and he is agreeable to same. HISTORY OF PRESENT ILLNESS: The patient is a 35-year-old white male well known to our service who has underlying poorly controlled diabetes, history of polysubstance abuse and a history of anxiety and depression, who was admitted to the hospital with complaints of rather severe abdominal pain with inability to eat much of anything over the last couple of weeks. He had nausea[place] [address] CONSULTATION Name: RONAK JOE SHANA Room: [address] IN [facility]#: [id number] Admission: 02/19/21 Attend Phys: Janis Cartagena Discharge: Date of : 89 Report #: [id number] has had some coffee-ground emesis. He is supposed to be on Protonix, but is not taking that medication. He does not even remember being on that medication. He denies any complaints of dysphagia or odynophagia, but just cannot eat much of anything. He has diffuse abdominal pain associated with bowel issues because he has not been able to eat much of anything. He has lost some weight. He has multiple medical issues and as I mentioned above, he is poorly compliant with all of his care. ALLERGIES: NICKEL AND WASP. MEDICATIONS: He is supposed to be on include Protonix, gabapentin, various forms of insulin and lidocaine patches. He is also supposed to be on Seroquel, Celexa, Suboxone and Protonix, but it is unclear whether he is still taking the Protonix. PAST MEDICAL HISTORY: Remarkable for poorly controlled diabetes, chronic pain syndrome for which he is on Suboxone. He has a history of reflux esophagitis. He has had a previous underlying history of anxiety and depression with history of previous suicide attempts in the past. He has had repeated admissions for DKA. The patient had previous tracheostomy, PEG tube placement in the past, history of genital warts. PAST SURGICAL HISTORY: He has had previous ____ of his spine, left knee surgery, left orbital fracture ____, left ankle fracture. He has had back surgery, history of kidney stones, fractured skull, bulging disks, unbelievable. History of previous meth use. He states he had been clean for a while. SOCIAL HISTORY: The patient smokes tobacco every day, has history of alcohol abuse and polysubstance abuse. PHYSICAL EXAMINATION: GENERAL: Revealed an ill-appearing 35-year-old white male who appears much older than his stated age. CARDIOPULMONARY: Revealed a tachycardic rate and rhythm. LUNGS: Clear. ABDOMEN: Diffusely tender. No rebound or guarding noted. LABORATORY DATA: His laboratory test from admission revealed a white count of 5.8, hemoglobin 11.7 and platelet count of 353,000. His MCV is only 75.3 and RDW 21.4. His differential is normal. On admission on the , his hemoglobin was 14.4. With hydration, his hemoglobin is now down to 11.7. His sodium from admission revealed a sodium of 136, potassium 4.9, chloride 96, bicarb 15, his BUN is 29, creatinine 1.84, GFR of only 44. Total bilirubin 0.6, alkaline phosphatase 102, AST 19, ALT 18, albumin 4.0. [place] [address] CONSULTATION Name: RONAK JOE Room: [address] IN [facility]#: [id number] Admission: 02/19/21 Attend Phys: Janis Cartagena Discharge: Date of : 89 Report #: [id number] that time. His laboratory tests from the revealed a BUN and creatinine of 18 and 1.6 respectively for a GFR of 50. His liver tests are normal. His total protein is 6.6 with an albumin of 3.2. DIAGNOSTIC DATA: CT scan of the abdomen and pelvis performed on the revealed a paucity of mesenteric fat. He has some kidney stones, which are in the kidneys without evidence of hydronephrosis. Bowel loops are normal. No inflammatory changes are noted. DISCUSSION: At the present time, the patient has problem with recurrent nausea, vomiting, abdominal pain and hematemesis. We will proceed with upper endoscopy today and make further recommendations thereafter. <ELECTRONICALLY SIGNED> By: Gaurang Arango DO 02/22/21 1002 1058 1223Gmarcello Arango DO /nt
[2021-02-22 10:14] LABS: ALBUMIN 2.6 g/dL (3.4-5.0); CALCIUM 8.8 mg/dL (8.5-10.1); CREATININE 1.2 mg/dL (0.6-1.3); PHOSPHORUS* 3.3 mg/dL (2.5-4.9)
[2021-02-22 10:30] LABS: POTASSIUM 6.4 mmol/L (3.5-5.1)
--- NOTE | 2021-02-22 10:40 | NUR ---
POTASSIUM 6.4, DR MAYER NOTIFIED AT 1039. LAB ORDERS ENTERED FOR REDRAW FOR VERIFICATION
[2021-02-22 12:00] VITALS: BP 130/94
--- NOTE | 2021-02-22 13:25 | 2DMMODE ---
[place] [address] 2 D/M-MODE ECHOCARDIOGRAM Name: RONAK JOENATHAN Room: [address] IN [facility]#: [id number] Admission: 02/19/21 Attend Phys: Roberto Meyers Discharge: Date of : 89 Date of Service: 02/22/21 1325 Report #: [id number] THIS REPORT FOR: cc: Angelica Looney MD, Elizabeth S. MD Blick, David R. MD [facility] ~ APPROVED REPORT Study performed: 02/22/2021 11:18:32 EXAM: Comprehensive 2D, Doppler, and color-flow Echocardiogram Patient Location: In-Patient Room #: [facility] Status: routine BSA: 1.62 HR: 100 bpm BP: 109/60 mmHg Rhythm: NSR Other Information Study Quality: Excellent Indications Chest Pain 2D Dimensions IVSd: 11.03 (7-11mm) LVDd: 37.52 mm PWd: 9.78 (7-11mm) Ascending Ao: 28.30 (22-36mm) Volumes Left Atrial Volume (Systole) LA ESV Index: 12.90 mL/m2 Aortic Valve AoV Peak Miguel Ángel.: 1.01 m/s AO Peak Gr.: 4.07 mmHg LVOT Max P.51 mmHg AO Mean Gr.: 2.67 mmHg LVOT Mean P.39 mmHg LVOT Max V: 0.79 m/s AO V2 VTI: 16.57 cm LVOT Mean V: 0.56 m/s LVOT V1 VTI: 12.48 cm Mitral Valve E/A Ratio: 0.84 [place] [address] 2 D/M-MODE ECHOCARDIOGRAM Name: RONAK JOENATHAN Room: [address] IN .R.#: [id number] Admission: 02/19/21 Attend Phys: Roberto Meyers Discharge: Date of : 89 Date of Service: 02/22/21 1325 Report #: [id number] MV Decel. Time: 123.86 ms MV E Max Miguel Ángel.: 0.50 m/s MV PHT: 35.92 ms MVA (PHT): 6.12 cm2 TDI E/Lateral E': 7.14 E/Medial E': 6.25 Medial E' Miguel Ángel.: 0.08 m/s Lateral E' Miguel Ángel.: 0.07 m/s Pulmonary Valve PV Peak Miguel Ángel.: 1.11 m/s PV Peak Gr.: 4.89 mmHg Left Ventricle The left ventricle is normal size. There is normal left ventricular wall thickness. The left ventricular systolic function is normal. The left ventricular ejection fraction is within the normal range. LVEF is 60-65%. Grade I - abnormal relaxation pattern. Right Ventricle The right ventricle is normal size. The right ventricular systolic function is normal. Atria The left atrium size is normal. The right atrium size is normal. Aortic Valve The aortic valve is normal in structure. No aortic regurgitation is present. There is no aortic valvular stenosis. Mitral Valve The mitral valve is normal in structure. There is no mitral valve regurgitation noted. No evidence of mitral valve stenosis. Tricuspid Valve The tricuspid valve is normal in structure. Trace tricuspid regurgitation. Pulmonic Valve The pulmonary valve is normal in structure. There is no pulmonic valvular regurgitation. Great Vessels The aortic root is normal in size. IVC is normal in size and collapses >50% [place] [address] 2 D/M-MODE ECHOCARDIOGRAM Name: RONAK JOE SHANA Room: [address] IN .R.#: [id number] Admission: 02/19/21 Attend Phys: Roberto Meyers Discharge: Date of : 89 Date of Service: 02/22/21 1325 Report #: [id number] Pericardium There is no pericardial effusion. <Conclusion> The left ventricular systolic function is normal. The left ventricular ejection fraction is within the normal range. <ELECTRONICALLY SIGNED> By: Bryan Man MD, [facility] 02/22/21 1325 24 24 Bryan Man MD, FACC /INF
--- NOTE | 2021-02-22 16:56 | NUR ---
Pt is admitted to the hospital on 02/19/21 with vomiting blood, and elevated blood sugars. Pt lives with his girlfriend. Pt reports he utilized a walker for short distances and his girlfriend assists with ADL's. Pt fills his prescriptions with [facility] in [place]. Pt reports he has seen his PCP recently. Discussed at length staff was recommending LTC placement. Pt is refusing to go to a facility - and he is aware Medicaid does not cover therapy at a LTC facility. He is requesting to go to ARU. [facility] ARU appears full, & [facility] is full. Faxed referrals to [facility] and [facility]. Bridget from [facility] reports he is too functional. CM to continue to follow for discharge planning.
[2021-02-22 17:27] VITALS: BP 133/88
[2021-02-22 21:00] VITALS: BP 121/87
[2021-02-23] VITALS (7 sets, daily range): BP systolic 99–149; BP diastolic 64–109
--- NOTE | 2021-02-23 06:27 | NUR ---
SLEPT WELL TONIGHT. PT C/O CONSTANT ABD PAIN ESPECIALLY WITH BOWEL MOVEMENTS. IV PAIN MED GIVEN. PT HAVING SEVERAL LOOSE BM'S TONIGHT. TELEMETRY ON SHOWING SR TO ST.
[2021-02-23 11:59] LABS: ABSOLUTE BASOPHILS 0.1 thou/uL (0.0-0.2); ABSOLUTE EOSINOPHILS 0.1 thou/uL (0.0-0.7); ABSOLUTE LYMPHOCYTES 1.4 thou/uL (0.8-5.3); ABSOLUTE MONOCYTES 0.2 thou/uL (0.0-1.2); ABSOLUTE NEUTROPHILS 3.3 thou/uL (1.6-8.1); BASOPHILS 1.2 %; EOSINOPHILS 2.1 %; HEMATOCRIT 34.4 % (42.0-52.0); HEMOGLOBIN 11.3 gm/dL (14.0-18.0); LYMPHOCYTES 27.6 %; MCH 24.7 pg (26.0-34.0); MCHC 32.8 g/dL (28.0-37.0); MCV 75.4 fL (80.0-100.0); MONOCYTES 3.8 %; MPV 7.5 fl. (7.2-11.1); NUCLEATED RBCS 0 /100WBC; PLATELET COUNT* 232 thou/uL (150-400); POLYS 65.3 %; RBC 4.57 mil/uL (4.50-6.00); RDW-CV 21.4 % (10.5-14.5); WBC 5.1 thou/uL (4.0-11.0)
[2021-02-23 12:08] LABS: ALBUMIN 2.5 g/dL (3.4-5.0); CALCIUM 8.8 mg/dL (8.5-10.1); CREATININE 0.9 mg/dL (0.6-1.3); POTASSIUM 4.1 mmol/L (3.5-5.1); TOTAL BILIRUBIN 0.2 mg/dL (<0.1-1.0); TOTAL PROTEIN 5.7 g/dL (6.4-8.2)
[2021-02-23 12:26] LABS: ANISOCYTOSIS 2+; HYPOCHROMASIA 2+; MICROCYTES 1+
--- NOTE | 2021-02-23 13:08 | EKG ---
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 : 1985 Requested By: Roberto Meyers Order Number: [id number] Jaz MD: Bryan Man Measurements Intervals [place] Rate: 115 P: 66 [place]: 163 QRS: 79 QRSD: 83 T: 59 QT: 318 QTc: 440 Interpretive Statements Sinus tachycardia nonspecific t wave changes Probable left atrial enlargement Compared to ECG 02/19/2021 17:29:19 no change Electronically Signed On 02-23-2021 13:07:57 PEDAL ASSEMBLER by Bryan Man [email or web address] <ELECTRONICALLY SIGNED> By: Bryan Man MD, [facility] 02/23/21 1307 1543 1543 Bryan Man MD, [facility] /EPI
--- NOTE | 2021-02-23 16:32 | NUR ---
Pt wanted to go to ARU - however both [facility] and [facility] are stating pt is too functiional. Pt is refusing intermediate care placement. Discussed pt in team meeting today - anticipate likely discharge tommorow - with home health. Made a referral to [facility] Cm to continue to follow for discharge planning.
[2021-02-24 04:00] VITALS: BP 113/64
[2021-02-24 08:11] VITALS: BP 114/87
[2021-02-24 11:15] LABS: ABSOLUTE BASOPHILS 0.1 thou/uL (0.0-0.2); ABSOLUTE EOSINOPHILS 0.2 thou/uL (0.0-0.7); ABSOLUTE LYMPHOCYTES 1.8 thou/uL (0.8-5.3); ABSOLUTE MONOCYTES 0.2 thou/uL (0.0-1.2); ABSOLUTE NEUTROPHILS 4.9 thou/uL (1.6-8.1); BASOPHILS 0.9 %; EOSINOPHILS 2.9 %; HEMATOCRIT 31.5 % (42.0-52.0); HEMOGLOBIN 10.3 gm/dL (14.0-18.0); LYMPHOCYTES 25.4 %; MCH 24.8 pg (26.0-34.0); MCHC 32.7 g/dL (28.0-37.0); MCV 75.9 fL (80.0-100.0); MONOCYTES 3.2 %; MPV 7.4 fl. (7.2-11.1); NUCLEATED RBCS 0 /100WBC; PLATELET COUNT* 208 thou/uL (150-400); POLYS 67.6 %; RBC 4.14 mil/uL (4.50-6.00); RDW-CV 21.3 % (10.5-14.5); WBC 7.2 thou/uL (4.0-11.0)
[2021-02-24 11:24] LABS: ALBUMIN 2.3 g/dL (3.4-5.0); CALCIUM 8.3 mg/dL (8.5-10.1); CREATININE 0.6 mg/dL (0.6-1.3); POTASSIUM 3.6 mmol/L (3.5-5.1); TOTAL BILIRUBIN 0.2 mg/dL (<0.1-1.0); TOTAL PROTEIN 5.4 g/dL (6.4-8.2)
[2021-02-24 12:02] LABS: ANISOCYTOSIS 2+; HYPOCHROMASIA 2+; PLATELET ESTIMATE ADEQUATE
[2021-02-24 13:14] VITALS: BP 114/87
[2021-02-24] MEDS ORDERED: DICYCLOMINE HCL20 MG PO (13:30)
--- NOTE | 2021-02-24 16:09 | NUR ---
Pt is discharging today with [facility]. D/C Summary - with order/face to face faxed to [facility] who plan to see him tommorow - 02/25/21.
== END 2021-02-24 14:27 | disposition home health service (06) | DRG 637 ==
LOC: M.ERS 16:46 → M.TBA-ER 18:30 → M.2W 02-21 16:46
PROVIDERS: Emergency Medicine; Emergency Medicine Emergency Medical Services; Internal Medicine Gastroenterology; ADMIT Internal Medicine; ATTEND Internal Medicine
PROC: 0DJ08ZZ Inspection of Upper Intestinal Tract, Via Natural or Artificial Opening Endoscopic (ICD-10-PCS; principal; 2021-02-20)
PROC: 0DJD8ZZ Inspection of Lower Intestinal Tract, Via Natural or Artificial Opening Endoscopic (ICD-10-PCS; 2021-02-24)
DX: E10.10 Type 1 diabetes mellitus with ketoacidosis without coma (principal); E43 Unspecified severe protein-calorie malnutrition; G93.41 Metabolic encephalopathy; N17.0 Acute kidney failure with tubular necrosis; K22.6 Gastro-esophageal laceration-hemorrhage syndrome; K22.11 Ulcer of esophagus with bleeding; F32.9 Major depressive disorder, single episode, unspecified; E10.22 Type 1 diabetes mellitus with diabetic chronic kidney disease; Z20.822 Contact with and (suspected) exposure to COVID-19; F41.9 Anxiety disorder, unspecified; F17.210 Nicotine dependence, cigarettes, uncomplicated; N18.9 Chronic kidney disease, unspecified; K44.9 Diaphragmatic hernia without obstruction or gangrene; Z93.0 Tracheostomy status; Z87.442 Personal history of urinary calculi; Z88.8 Allergy status to other drugs, medicaments and biological substances; Z68.33 Body mass index [BMI] 33.0-33.9, adult